=== PATIENT | male | born 1955 | race Caucasian/White ===

== ENCOUNTER 2018-12-26 20:56 | Inpatient (IN) | payer MEDICARE, SELFPAY ==
--- NOTE | 2018-12-26 21:04 | ED.GENADUL_ITS ---
Discharge Plan Disposition Patient Disposition: [facility] INPATIENT Condition: Poor Discharge Details Chief Complaint: Abd Prob Clinical Impression: Abdominal pain, Ventral hernia Primary Care Provider: Olegario Jay ED Provider: Enrico Mejia [place] Meds and New Rx's Prescriptions: No Action baclofen 20 MG tablet 20 mg PO Q8H PRNRF: 0 atorvastatin [Lipitor] 40 MG tablet 1 tab PO HS RF: 0 Medical Decision Making Patient with left lower quadrant pain and significant tenderness with guarding. Given his age, history and exam suspect diverticulitis. IV established. Fluids started. Morphine given for pain. Laboratory studies sent. CT scan of the abdomen pelvis with IV contrast ordered. 23:00 - Patient's labs are unremarkable. WBC is only slightly elevated. Lactic acid is less than 2. Other labs fine. CT scan shows a large ventral hernia with bowel loop with wall thickening. Radiology favors enteritis as opposed to strangulation. But, patient is exquisitely tender still despite morphine 8 mg. Consult placed with Dr. Hansen, who is coming in to see patient. 23:45 - Patient seen by Dr. Hansen. She will take patient to OR [facility]. Type and screen sent. Zosyn ordered. Medical Records Medical records reviewed: Yes I reviewed the patient's medical records. Lab Data Lab results reviewed: Yes I reviewed the patient's lab results. ECG Data Attestation: I personally reviewed and interpreted this ECG (s) as follows: Prior ECG tracings: not available for review Interpretation: Normal sinus rhythm at a rate of 64. Normal axis and intervals. Normal EKG. HPI General Mode of arrival: ambulatory . Date/Time Provider Initiated Documentation: 12/26/18 21:04 . Limitations to Documentation: no limitations . Information obtained by: patient, RN notes reviewed and old records reviewed . HPI Narrative: Patient presents to ED with complaint of left lower quadrant abdominal pain that has been getting worse over the last 2 days. He denies having fever, chills, nausea, vomiting, anorexia, diarrhea. He has no back pain or urinary symptoms. He has never had this previously. Pain is worse with lying flat or with movement. He feels better if he sitting up hunched over. Related Data Home Medications Medication Instructions Recorded Confirmed baclofen 20 mg PO Q8H PRN 06/26/15 12/26/18 atorvastatin [Lipitor] 1 tab PO HS 09/11/16 12/26/18 Allergies Allergy/AdvReac Type Severity Reaction Status Date / Time ibuprofen [From Motrin] AdvReac Intermediate face Verified 12/26/18 21:08 shrinks in lactose AdvReac Mild Diarrhea Verified 12/26/18 21:08 nicotine [From Nicoderm CQ] AdvReac Mild Topical Verified 12/26/18 21:08 Irritation varenicline tartrate AdvReac Mild feels Verified 12/26/18 21:08 [From Chantix] wierd Review of Systems Review of Systems 02/05 Review of Systems completed and is negative except as stated above in HPI (Systems reviewed: Const, Eyes, ENT, Resp, CV, GI, , MSK, Skin, Neuro) FOR[facility]LY [facility] Medical History CVA (cerebral vascular accident) (Chronic) Hypercholesterolemia (Acute) Renal insufficiency, mild (Chronic) Surgical History S/P appendectomy (Acute) S/P shoulder surgery (Acute) Social History (Updated 12/26/18 @ 23:48 by Brenda Hansen MD) Smoking/Tobacco Use Status: Current every day Alcohol Intake: current Drug use: Never Household members: spouse Do you feel safe in your relationship?: Yes Exam Narrative Exam Narrative: Vitals: Afebrile with normal vital signs. Const: WDWN male in NAD. HEENT: NC/AT. Normal facial exam. Eyes: Normal conjunctiva and sclera. Neck: Supple. Trachea midline. Lungs: Normal respiratory effort. Lungs with few rhonchi in bases. Cor: RRR without murmur/gallop. Good radial pulses. GI: Soft and non-distended. Tender in the LLQ with guarding. Back: No CVAT. Neuro: A+O x 3. CN grossly in tact. Good strength and no focal deficit. Ext: No C/C/E. Skin: Warm and dry without rash.
[2018-12-26 21:05] VITALS: BP 125/66; PULSE 90; RESP 18; TEMP 36.7; O2SAT 95
--- NOTE | 2018-12-26 21:22 | DI.CT_ITS ---
SYMPTOMS/DIAGNOSIS: LLQ PAIN CT OF THE ABDOMEN AND PELVIS: Comparison is made with [id number]. There is again noted to be dehiscence of the anterior abdominal wall. There are two areas of herniation containing small bowel which was seen on the previous exam and were nonobstructing on the previous study. There is now dilatation and marked wall thickening of loops of bowel in the same location at the area of the hernias. The findings could be secondary obstruction vs inflammatory or infectious causes. There is no evidence of free air, free fluid or abscess. There is diverticulosis but no evidence of diverticulitis. The patient appears to be status post appendectomy. The heart size is normal. The lung bases show dependent changes. The liver shows mild fatty infiltration which appears mildly improved when compared with the previous exam. The gallbladder, spleen, pancreas, adrenals and kidneys are unremarkable. The aorta shows mild calcification and mural thrombus but no evidence of aneurysm. IMPRESSION: Diastasis of the anterior abdominal wall. Two areas of herniation containing loops of small bowel. There is now wall thickening of the small bowel in this location which could be secondary obstruction vs inflammatory or infectious causes.
[2018-12-26] MEDS: Lactated Ringers 1,000 ML 1000 ML IV (21:30)
[2018-12-26] MEDS: Normal Saline Flush 10 ML SYR IVP (21:31)
[2018-12-26 21:41] LABS: Lactate 1.6 mmol/L (0.6-1.4)
[2018-12-26 21:45] LABS: Abs Immature Grans 0.03 k/cumm (0.0-0.09); Absolute Basophil Count 0.04 k/cumm (0.0-0.2); Absolute Eosinophil Count 0.45 k/cumm (0.0-0.7); Absolute Lymphocyte Count 2.79 k/cumm (1.2-3.4); Absolute Monocyte Count 0.43 k/cumm (0.11-0.7); Basophils % 0.3; Eosinophils % 3.7; HGB 14.8 g/dL (13.5-17.5); Immature Grans % 0.2; Lymphocytes % 23.2; Mean Corp. HGB Concentration 33.6 g/dL (32.0-36.0); Mean Corpuscular Hemoglobin 30.3 pg (27.0-33.0); Mean Platelet Volume 10.1 fL (8.0-11.0); Monocytes % 3.6; Platelet Count 272 x1000/uL (130-400); RBC 4.89 m/cumm (4.50-6.00); RBC Distribution Width 14.5 % (11.8-14.1); White Blood Cell Count 12.03 k/cumm (4.4-10.8)
[2018-12-26 21:58] LABS: ALT 32 U/L (16-63); AST 18 U/L (15-37); Albumin 3.5 g/dL (3.4-5.0); Alkaline Phosphatase 99 U/L (46-116); Anion Gap 8.4 mmol/L (3-11); BUN 17 mg/dL (7-18); Bilirubin, Total 0.4 mg/dL (0.2-1.0); CO2 25.6 mmol/L (21.0-32.0); CREATININE 1.11 mg/dL (0.70-1.30); Calcium 8.5 mg/dL (8.5-10.1); Chloride 104 mmol/L (98-107); Glucose 142 mg/dL (70-100); Magnesium 1.9 mg/dL (1.8-2.4); Potassium 3.4 mmol/L (3.5-5.1); Sodium 138 mmol/L (136-145); Total Protein 7.2 g/dL (6.4-8.2)
[2018-12-26 22:05] LABS: Lipase 162 U/L (73-393)
[2018-12-26 22:27] VITALS: BP 123/62; PULSE 72; RESP 16; O2SAT 95
[2018-12-26] MEDS: Omnipaque 350 MG/ML 100 ML BTL IJ (22:34)
--- NOTE | 2018-12-26 22:44 | DI.VRAD_ITS ---
EXAM: CT Abdomen and Pelvis With Contrast EXAM DATE/TIME: 12/26/2018 9:24 PM CLINICAL HISTORY: 63 years old, male; Abdominal pain; Localized; Left lower quadrant (llq); Prior surgery; Surgery date: 6+ months; Surgery type: Appendix removed after burst; Patient HX: Noticeable lump for about a month and increasing pain pain TECHNIQUE: Imaging protocol: Computed tomography of the abdomen and pelvis with intravenous contrast. Radiation optimization: All CT scans at this facility use at least one of these dose optimization techniques: automated exposure control; mA and/or kV adjustment per patient size (includes targeted exams where dose is matched to clinical indication); or iterative reconstruction. Contrast material: OMNIPAQUE 350; Contrast volume: 100 ml; Contrast route: IV; COMPARISON: CT CHEST ABD PELVIS WITH CONTRAST 05/18/2017 9:40 PM FINDINGS: Lungs: Small amount of basilar atelectasis. Liver: No suspicious lesions. Gallbladder and bile ducts: No acute or concerning findings. Pancreas: Unremarkable. No ductal dilation. Spleen: No suspicious lesions. Adrenals: No suspicious nodule. Kidneys and ureters: No hydro. No suspicious lesions. Stomach and bowel: Lower midline abdomen has a short segment of small bowel with wall thickening in this loop of bowel is involved in the ventral hernias. Appendix: Appendectomy. Intraperitoneal space: No free air. No significant fluid collection. Vasculature: Unremarkable. No acute findings Lymph nodes: Unremarkable. Bladder: Unremarkable as visualized. Reproductive: Unremarkable as visualized. Bones/joints: Unremarkable. No acute fracture. Soft tissues: Abdomen diastases. There are 2 periumbilical ventral hernias which contain short segments of small bowel. IMPRESSION: There is a segment of inflamed small bowel. Most likely this is enteritis from infection or inflammatory bowel disease. This loop of bowel is involved in the patient's ventral hernias however I think less likely that the wall thickening is associated with any strangulation.. Dictated and Authenticated by: Tim Ramos MD. Ordering:JEFFERY Weston MD
[2018-12-26 23:14] VITALS: BP 120/57; PULSE 64; RESP 16; TEMP 36.6; O2SAT 96
--- NOTE | 2018-12-26 23:43 | HPE_ITS ---
Date of service: 12/26/18 Time of Service: 23:43 Assessment and Plan (1) Incarcerated incisional hernia: Current visit: Yes Status: Acute A\\ Incarcerated incisional hernia with possible small bowel compromise P\\ Exploratory laparotomy with reduction of hernia, possible small bowel resection with anastamosis Risks, benefits and complications have been reviewed. Complications include but are not limited to bleeding, infection, [place] leak, bowel injury, hernia recurrence, wound dehisence, NH, stroke, . Questions were entertained and answered to his satisfaction and he wished to proceed. No guarantees were given or implied. History of Present Illness Chief Complaint: Abdominal pain Consults Consult date: 12/26/18 Requesting physician: Enrico Mejia Narrative: Patient presents to ED with complaint of left lower quadrant abdominal pain that has been getting worse over the last 2 days. He denies having fever, chills, nausea, vomiting, anorexia, diarrhea. He has no back pain or urinary symptoms. He has never had this previously. Pain is worse with lying flat or with movement. He feels better if he sitting up hunched over. He tells me that he has symptoms on and off for 1 to 2 months but over the last 3-4 days the pain has progressively gotten worse. He denies any trauma. He denies fevers or chills. He has a PMHx significant for ruptured appendicitis and had a midline incision. CT scan in the ER revealed an incisional hernia with small bowel within it. It looks like the bowel is tunneling under the skin. There are inflammatory changes around the bowel. WBC count is mildly elevated, lactate is normal. Review of Systems Constitutional Denies fever(s) and Denies weakness Eyes Denies change in vision Cardiovascular Denies chest pain, Denies chest pain at rest, Denies irregular heart rhythm, Denies claudication, Denies palpitations and Denies dyspnea Respiratory Denies cough and Denies dyspnea Gastrointestinal Reports as per HPI and Denies dyspepsia Genitourinary Denies hematuria and Denies dysuria Neurologic Denies weakness Endocrine Denies palpitations Hematologic/Lymphatic Denies easy bleeding, Denies easy bruising and Denies lymphadenopathy FORMERLY [facility] Medical History CVA (cerebral vascular accident) (Chronic) Hypercholesterolemia (Acute) Renal insufficiency, mild (Chronic) Surgical History S/P appendectomy (Acute) S/P shoulder surgery (Acute) Social History (Updated 12/26/18 @ 23:48 by Brenda Hansen MD) Smoking/Tobacco Use Status: Current every day Alcohol Intake: current Drug use: Never Household members: spouse Do you feel safe in your relationship?: Yes Meds Home Medications Medication Instructions Recorded Confirmed Type baclofen 20 mg PO Q8H PRN 06/26/15 12/26/18 History atorvastatin [Lipitor] 1 tab PO HS 09/11/16 12/26/18 History Allergies Allergy/AdvReac Type Severity Reaction Status Date / Time ibuprofen [From Motrin] AdvReac Intermediate face Verified 12/26/18 21:08 shrinks in lactose AdvReac Mild Diarrhea Verified 12/26/18 21:08 nicotine [From Nicoderm CQ] AdvReac Mild Topical Verified 12/26/18 21:08 Irritation varenicline tartrate AdvReac Mild feels Verified 12/26/18 21:08 [From Chantix] wierd Exam Const General: cooperative, comfortable and no acute distress Orientation: alert and oriented x3 HENMT Head: normocephalic and atraumatic Eyes Pupils: PERRL Resp Effort & Inspection: normal respiratory effort Auscultation: clear to auscultation bilaterally Cardio Rate: regular rate Rhythm: regular rhythm Heart Sounds: no gallops, no murmurs and no rubs GI Inspection: normal to inspection and incision (midline incision) Palpation: soft, no hepatosplenomegaly and tender in the LLQ (guarding) Auscultation: normal bowel sounds Results Labs : 12/26/18 21:15 12/26/18 21:15 Laboratory Results - last 24 hr 12/26/18 12/26/18 12/26/18 21:15 21:15 21:15 WBC 12.03 H RBC 4.89 Hgb 14.8 Hct 44.0 MCV 90.0 MCH 30.3 MCHC 33.6 RDW 14.5 H Plt Count 272 MPV 10.1 Immature Gran % 0.2 Neutrophils % 69.0 Lymphocytes % 23.2 Monocytes % 3.6 Eosinophils % 3.7 Basophils % 0.3 Absolute Neutrophils 8.30 H Absolute Lymphocytes 2.79 Absolute Monocytes 0.43 Absolute Eosinophils 0.45 Absolute Basophils 0.04 Sodium 138 Potassium 3.4 L Chloride 104 Carbon Dioxide 25.6 Anion Gap 8.4 BUN 17 Creatinine 1.11 Estimated GFR/1.73 m2 >= 60.00 Glucose 142 H Lactate 1.6 H Calcium 8.5 Magnesium 1.9 Total Bilirubin 0.4 AST 18 ALT 32 Alkaline Phosphatase 99 Total Protein 7.2 Albumin 3.5 Lipase 162 Last Vital Signs Temp 97.9 F 12/26/18 23:14 Pulse 64 12/26/18 23:14 Resp 16 12/26/18 23:14 BP 120/57 L 12/26/18 23:14 Pulse Ox 96 12/26/18 23:14
[2018-12-26] MEDS: PIPERACILLIN/TAZO 3.375 GM in Normal Saline 50 ML IVPB (23:58)
[2018-12-27] VITALS (14 sets, daily range): BP systolic 106–144; BP diastolic 63–84; PULSE 67–97; RESP 15–23; TEMP 36–37.5; O2SAT 92–99
[2018-12-27] MEDS: Lactated Ringers 1,000 ML 80 ML IV ×3 (00:27→17:00)
[2018-12-27] MEDS: fentaNYL 100 MCG/2 ML VIAL IVP ×2 (02:31→02:39)
--- NOTE | 2018-12-27 02:32 | ROE_ITS ---
Date of service: 12/27/18 Time of Service: 02:33 Operative Note DATE OF PROCEDURE: 12/27/18 PRE-OP DIAGNOSIS: Incarcerated hernia POST-OP DIAGNOSIS: same PROCEDURE: Exploratory laparotomy, lyses of adhesions, removal of hernia sac and hernia repair with ventralex mesh SURGEON: Brenda Hansen CONTROLS DESIGN ENGINEER: Audrey Sanchez ANESTHESIA: GETA (ASA 2E/ Nacho Espinoza, MANUEL) ESTIMATED BLOOD LOSS: 75 PATHOLOGY: none sent COMPLICATIONS: None Patient was transported to: PACU Patient's condition: stable Implants: Ventralight ST 8 x 10 inch [id number] Indications: Mr. Negrete is a 63 year old male seen in the ED with 3-4 days of abdominal pain located in the LLQ. He was guarding on exam. CT scan revealed incisional hernia with fat stranding and bowel thickening. Due to his pain and CT findings surgery for exploration and repair of hernia and possible small bowel resection was recommended. Risks, benefits and complications were revi ewed. Questions were entertained and answered to his satisfaction and he wished to proceed. NO guarantees were given or implied. Findings: multiple small hernias. Loop of small bowel that was edematous but viable. Retracted fascia. Procedure Description: After informed consent was obtained the patient was taken to the Operating room and placed in a supine position of the operating room table. Monitors were applied and a time out was done. The patients name, , allergies, antibiotic given, DVT prophilaxis, surgery planned, type and screen status were all reviewed. Fire risk was assessed. Next the patient was placed under general anesthesia and intubated. 3.375 Gm of Zosyn were given prior to arriving in surgery in the ER. Once a sleep and with the airway secured a redmond catheter was placed in a standard, sterile surgical fashion. At this point the patient hair was clipped and his abdomen was prepped and draped in a standard fashion. His midline incision was opened with a 10 blade. Cautery was carefully used to dissect down through the subcutaneous tissue. In the most superior portion of the incision the fascia was opened and I was able to place my finger and sweep for bowel. The fascia was slowly opened and 4 small hernia defects were identified on the left and right off midline. There was no bowel incarcerated but there was one loop of bowel that was edematous. Once the fascia was opened the entire length adhesions were noted of bowel to peritoneum. The adhesions were cut using both cautery and scissors. 30 minutes were spend lysing adhesions. Once the bowel was dissected away from the peritoneum, the peritoneum was inspected again. All defects in the fascia were noted. There were 4 hernias. The hernia sacs were dissected away from the fascia. The rectus muscle was palpated and was noted to be retracted about 2 inches away from the midline. The fascia/peritoneum/ muscle was dissected away from the subcutaneous tissue almost to the anterior superior iliac spine. At this point the fascia was inspected and noted to be very thin. The small bowel was inspected and run and no enterotomies or serosal tears were noted. At this point the abdomen was irrigated with 1 L of warm Normal Saline. A Ventralight mesh 8 x 10 was placed into the abdomen and attached first in 4 quadrants with 2-0 proline. 4 more sutures were then placed in the mesh attaching it to the fascia. The mesh was inspected and was laying pretty flat at that point. The peritoneum and fascia was closed with #1 Vicryl running suture over the mesh. The subcutaneous tissue was the irrigated again. because of the amount of dissection 2 10 Fr drains were placed on either side of mi dline. The fascia was closed with wendi. The drains were attached to the Bulbs and there was serosanguinous fluid. The skin was cleaned and dried. 4 x 4 were applied to the dressing and tapped in place. The redmond was removed. The patient was woken up, extubated and taken to PACU in stable to condition. There were no immediate complications. Sponge, instrument and needle counts were correct x 2 at the end of the case.
[2018-12-27] MEDS: Normal Saline Flush 10 ML SYR IVP ×6 (03:07→22:15)
[2018-12-27] MEDS: Ketorolac 15 MG/ML VIAL IVP ×2 (04:12→22:15)
[2018-12-27] MEDS: Enoxaparin 40 MG/0.4 ML SYR SC (06:32)
[2018-12-27] MEDS: PIPERACILLIN/TAZO 3.375 GM in Normal Saline 50 ML IVPB ×2 (06:32→12:03)
--- NOTE | 2018-12-27 07:02 | W.PM.PROGNOT ---
Date of Service Date of service: 12/27/18 Time of Service: 07:02 Assessment and Plan (1) Incarcerated incisional hernia: Current visit: Yes Status: Acute POD #1 s/p exploratory lapartomy for incarcerated incisional hernia Pain- Severe at times. Morphine is ordered. Diet- Will trial post op diet this morning. Activity- Encouraged activity out of bed. Nsg staff were getting him up. GLEN drains- Bloody, serous fluid in both. Subjective Interval history since last seen: The nurse just gave me something for pain. He reports discomfort over his incision site. Exam Const General: cooperative, comfortable and acute distress mild Orientation: alert and oriented x3 Resp Effort & Inspection: normal respiratory effort, no audible wheezes and no cough GI Inspection: normal to inspection and incision (Dressing in place. Mild bleeding noted at the base of the dressing/incision) Palpation: soft, guarding and tender Objective Objective Clinical Data: Abnormal lab results 12/26/18 12/26/18 12/26/18 Range/Units 21:15 21:15 21:15 WBC 12.03 H (4.4-10.8) k/cumm RDW 14.5 H (11.8-14.1) % Absolute Neutrophils 8.30 H (1.2-6.7) k/cumm Potassium 3.4 L (3.5-5.1) mmol/L Glucose 142 H (70-100) mg/dL Lactate 1.6 H (0.6-1.4) mmol/L Vital Signs Temperature 36.8 C 12/27/18 05:40 Temperature Source Tympanic 12/27/18 05:40 Pulse 70 12/27/18 05:40 Pulse Rhythm Regular 12/27/18 03:10 Respiratory Rate 18 12/27/18 05:40 Respiratory Effort Non-Labored 12/27/18 03:10 Respiratory Depth Normal 12/27/18 03:10 Respiratory Pattern Normal 12/27/18 03:10 Blood Pressure 132/75 12/27/18 05:40 Blood Pressure Position Sitting 12/26/18 21:05 Pulse Oximetry 97 12/27/18 05:40 Respiratory End-tidal CO2 38 12/27/18 02:48 Oxygen Delivery Method Nasal Cannula 12/27/18 05:40 Oxygen Flow Rate 2 12/27/18 05:40 Pain Level 6 12/27/18 06:32 Comment 12/27/18 05:40 Intake & Output 12/26/18 12/27/18 12/27/18 18:59 06:59 18:59 Intake Total 1974.333 / 1974. Output Total 450 / 450 Balance 1525.333 / 1525.333 Weight 109.2 kg Intake: IV 1914. / Oral 60 / 60 Output: Drainage 150 / 150 Lower Abdomen 150 / 150 Urine 300 / 300 Other: Urine Color Yellow Urine Appearance Clear Emesis Description None Laboratory Results WBC 12.03 k/cumm (4.4-10.8) H 12/26/18 21:15 RBC 4.89 m/cumm (4.50-6.00) 12/26/18 21:15 Hgb 14.8 g/dL (13.5-17.5) 12/26/18 21:15 Hct 44.0 % (40.0-50.0) 12/26/18 21:15 MCV 90.0 fL (80-95) 12/26/18 21:15 MCH 30.3 pg (27.0-33.0) 12/26/18 21:15 MCHC 33.6 g/dL (32.0-36.0) 12/26/18 21:15 RDW 14.5 % (11.8-14.1) H 12/26/18 21:15 Plt Count 272 x1000/uL (130-400) 12/26/18 21:15 MPV 10.1 fL (8.0-11.0) 12/26/18 21:15 Immature Gran % 0.2 12/26/18 21:15 69.0 12/26/18 21:15 23.2 12/26/18 21:15 3.6 12/26/18 21:15 3.7 12/26/18 21:15 0.3 12/26/18 21:15 Absolute Neutrophils 8.30 k/cumm (1.2-6.7) H 12/26/18 21:15 Absolute Lymphocytes 2.79 k/cumm (1.2-3.4) 12/26/18 21:15 Absolute Monocytes 0.43 k/cumm (0.11-0.7) 12/26/18 21:15 Absolute Eosinophils 0.45 k/cumm (0.0-0.7) 12/26/18 21:15 Absolute Basophils 0.04 k/cumm (0.0-0.2) 12/26/18 21:15 Sodium 138 mmol/L (136-145) 12/26/18 21:15 Potassium 3.4 mmol/L (3.5-5.1) L 12/26/18 21:15 Chloride 104 mmol/L (98-107) 12/26/18 21:15 Carbon Dioxide 25.6 mmol/L (21.0-32.0) 12/26/18 21:15 8.4 mmol/L (3-11) 12/26/18 21:15 BUN 17 mg/dL (7-18) 12/26/18 21:15 1.11 mg/dL (0.70-1.30) 12/26/18 21:15 >= 60.00 (mL/min/1.73m2) 12/26/18 21:15 Glucose 142 mg/dL (70-100) H 12/26/18 21:15 1.6 mmol/L (0.6-1.4) H 12/26/18 21:15 Calcium 8.5 mg/dL (8.5-10.1) 12/26/18 21:15 Magnesium 1.9 mg/dL (1.8-2.4) 12/26/18 21:15 0.4 mg/dL (0.2-1.0) 12/26/18 21:15 AST 18 U/L (15-37) 12/26/18 21:15 ALT 32 U/L (16-63) 12/26/18 21:15 99 U/L (46-116) 12/26/18 21:15 7.2 g/dL (6.4-8.2) 12/26/18 21:15 3.5 g/dL (3.4-5.0) 12/26/18 21:15 162 U/L (73-393) 12/26/18 21:15 Patient ABO/Rh A Positive 12/26/18 23:55 Antibody Screen Negative 12/26/18 23:55
[2018-12-27 07:18] LABS: Abs Immature Grans 0.02 k/cumm (0.0-0.09); Absolute Basophil Count 0.02 k/cumm (0.0-0.2); Absolute Eosinophil Count 0.02 k/cumm (0.0-0.7); Absolute Lymphocyte Count 0.64 k/cumm (1.2-3.4); Basophils % 0.1; Eosinophils % 0.1; HCT 43.1 % (40.0-50.0); Immature Grans % 0.1; Lymphocytes % 3.9; Mean Corp. HGB Concentration 32.5 g/dL (32.0-36.0); Mean Corpuscular Hemoglobin 29.8 pg (27.0-33.0); Mean Corpuscular Volume 91.7 fL (80-95); Mean Platelet Volume 10.5 fL (8.0-11.0); Monocytes % 1.2; Neutrophils % 94.6; Platelet Count 274 x1000/uL (130-400); RBC Distribution Width 14.7 % (11.8-14.1); White Blood Cell Count 16.33 k/cumm (4.4-10.8)
[2018-12-27 07:19] LABS: Absolute Neutrophil Count 15.45 k/cumm (1.2-6.7)
[2018-12-27 07:31] LABS: Anion Gap 9.7 mmol/L (3-11); BUN 15 mg/dL (7-18); CO2 24.3 mmol/L (21.0-32.0); CREATININE 1.07 mg/dL (0.70-1.30); Calcium 8.3 mg/dL (8.5-10.1); Chloride 105 mmol/L (98-107); Glucose 152 mg/dL (70-100); Potassium 4.4 mmol/L (3.5-5.1); Sodium 139 mmol/L (136-145)
[2018-12-27] MEDS: oxyCODONE 5 MG TAB PO ×3 (08:13→19:45)
[2018-12-27] MEDS: Docusate Sodium 100 MG CAP PO (08:13)
[2018-12-27] MEDS: Acetaminophen 325 MG TAB 650 MG PO (08:19)
--- NOTE | 2018-12-27 09:31 | PHARADMIT ---
Addendum entered by Daniel Bryan III 12/28/18 12:14: Pharmacy Note Subjective Post-op day#1 Incisional hernia repair w/mesh. Provider reports patient up & doing well. Objective VS-OK pain:02/01 Labs-stable unchanged, No BM yet Assessment Tolerating Toradol despite Ibuprofen allergy, Oxycodone for pain with IV narcs for BT. Plan Plan for discharge once pain controlled and stable. Original Note: Admission Pharmacy Clinical Review Post-op incarcerated hernia repair Code Status Full Code Current Weight Wgt-109.2 kg Renally Cleared and Narrow Therapeutic Index Meds CrCl~81 mL/min Meds-OK QTc Value / Action Taken qtC-413 na BP Control, Fever BP-110/71 Tmax-36.6C Electrolytes reviewed Na- 139 K+4.4 Mag-1.9 DVT Prophylaxis Lovenox Opiate Usage / Scheduled Bowel Regimen Ordered Yes/ Yes Plt/SCr for Heparin / Enoxaparin Plts-274 SCr-1.07 INR for Warfarin na H/H stable, WBC/Bands H&H-14.0/43.1 WBC- 16.33 Antibiotic appropriateness Zosyn Cultures and Sensitivities none Surgical ABX d/c within 24 hr na DM control / Insulin Dosing BG-152 Heart Failure (Check EF%) (CHRISTOPHER's, B-Block, Diuretics) none IV to PO Switch No Home Meds Reviewed Yes Home Meds Not Ordered Baclofen, Lipitor Comments
--- NOTE | 2018-12-27 15:16 | INITIAL_ITS ---
- If Service Date Differs Date of service: 12/27/18 Time of Service: 15:16 Care Management Initial Assess REASON FOR HOSPITALIZATION:: Abdominal Pain, ventral hernia PAST MEDICAL HISTORY/PAST SURGICAL HISTORY:: Medical History. CVA (cerebral vascular accident) (Chronic). Hypercholesterolemia (Acute). Renal insufficiency, mild (Chronic). Surgical History. S/P appendectomy (Acute). S/P shoulder surgery (Acute) PREVIOUS FUNCTIONAL STATUS/SOCIAL/FAMILY SUPPORTS:: Gerardo lives in [facility] with his , Ruthy, who he calls 'the boss'. He states that he is disabled, and that his is his software test engineer. He also explains that his house is one level, and his bathroom is handicap accessible. Between him and his , they have 12 children and 20 grandchildren. CURRENT FUNCTIONAL STATUS:: Gerardo was lying in his bed when CM entered the room. He had his hand over his abdomin, and his eyes were closed. He opened his eyes to talk to CM about his care plan. When asked, he stated that he was in p ain, but that the nurse had just given him something for his pain, and that it had been kept under control while here. He stated that he was splitting wood all day yesterday and he was in a lot of pain, so he came to the ED. He said that he waited until the pain was unbearable to have it looked at. He is aware that he had surgery to repair the hernia, but he does not know when he will be going sha[facility] e. When CM asked if he needed anything he stated take my pain away, but he said the pain was only when he tried to move around. He also stated that he was tired. ADVANCE DIRECTIVES:: Greg reported that his staff attorney has a living will on file. We do not have an AD on file. Has patient been provided with information about the portal?: Yes Did the patient sign up for the portal?: No (Pt to discuss w/) CODE STATUS:: Full Code INSURANCE COVERAGE / FINANCIAL ISSUES:: MCR CURRENT HOME/COMMUNITY SERVICES/EQUIPMENT:: Greg currently has a FWW, cane and crutches at home. Greg requested new HH services and MOW, which CM will coordinate and communicate with the provider for medical necessity. PRIMARY CARE PHYSICIAN:: Olegario Jay POTENTIAL DISCHARGE NEEDS:: Anticipate new HH services, which CM will coordinate. CM sent referral to [facility] for options counceling and MOW. Follow up appointment with PCP. PATIENT/FAMILY EDUCATION NEEDS:: Review discharge instructions, discuss self care needs including Ask Me Three. ANTICIPATED BARRIERS TO DISCHARGE:: None identified at this time. CM will follow. TRANSPORTATION:: Home via private vehicle with his , Ruthy. PLAN:: Greg will return home when medically cleared. He will follow up with his PCP, as instructed. Anticipate new HH services, coordinated by CM. CM also sent referral to [facility] for options counceling and MOW. Greg will be driven home by his when ready to discharge.
--- NOTE | 2018-12-27 17:42 | W.PM.PROGNOT ---
Date of Service Date of service: 12/27/18 Time of Service: 17:42 Assessment and Plan (1) S/P herniorrhaphy: Current visit: Yes Status: Acute A\\ POD#0 s/p incisional hernia repair with mesh P\\ Doing well. Discussed pain control and reasonable expectations regarding pain control. Needs to be controlled on po pain meds to be able to get discharged. Pain meds: will change oxycodon to q4 hours use IV narcotis only for breakthrough Activity: up and walking respiratory: continue with deep breathing and ISP Drains: will remove once draining serous fluid Labs: recheck in am Has listed allergy to ibuprofen but is doing well on toradol. Disposition: Home once medically stable and pain controlled on po meds Note for work written and in chart Subjective Interval history since last seen: Doing Ok. Has been up and walking. He is still needing IV pain medication to help. Tolerating a regular soft post op diet. Exam Const General: cooperative, comfortable and no acute distress Orientation: alert and oriented x3 Resp Effort & Inspection: normal respiratory effort Auscultation: clear to auscultation bilaterally Cardio Rate: regular rate Rhythm: regular rhythm Heart Sounds: no gallops, no murmurs and no rubs GI Inspection: incision (c/d/i) Palpation: soft and tender (appropriatley along the incison) Auscultation: normal bowel sounds Objective Objective Clinical Data: Abnormal lab results 12/26/18 12/26/18 12/26/18 Range/Units 21:15 21:15 21:15 WBC 12.03 H (4.4-10.8) k/cumm RDW 14.5 H (11.8-14.1) % Absolute Neutrophils 8.30 H (1.2-6.7) k/cumm Absolute Lymphocytes (1.2-3.4) k/cumm Potassium 3.4 L (3.5-5.1) mmol/L Glucose 142 H (70-100) mg/dL Lactate 1.6 H (0.6-1.4) mmol/L Calcium (8.5-10.1) mg/dL 12/27/18 12/27/18 Range/Units 06:15 06:15 WBC 16.33 H D (4.4-10.8) k/cumm RDW 14.7 H (11.8-14.1) % Absolute Neutrophils 15.45 H (1.2-6.7) k/cumm Absolute Lymphocytes 0.64 L (1.2-3.4) k/cumm Potassium (3.5-5.1) mmol/L Glucose 152 H (70-100) mg/dL Lactate (0.6-1.4) mmol/L Calcium 8.3 L (8.5-10.1) mg/dL Vital Signs Temperature 98.2 F 12/27/18 15:26 Temperature Source Tympanic 12/27/18 15:26 Pulse 74 12/27/18 15:26 Pulse Rhythm Regular 12/27/18 15:26 Respiratory Rate 18 12/27/18 15:26 Respiratory Effort Non-Labored 12/27/18 15:26 Respiratory Depth Normal 12/27/18 15:26 Respiratory Pattern Normal 12/27/18 15:26 Blood Pressure 135/74 12/27/18 15:26 Blood Pressure Position Sitting 12/26/18 21:05 Pulse Oximetry 92 L 12/27/18 15:26 Respiratory End-tidal CO2 38 12/27/18 02:48 Oxygen Delivery Method Room Air 12/27/18 15:26 Oxygen Flow Rate 0 12/27/18 15:26 Pain Level 5 12/27/18 17:08 Comment 12/27/18 05:40 Intake & Output 12/26/18 12/27/18 12/27/18 23:59 11:59 23:59 Intake Total 1000 / 1000 1910.333 / 3291.000 1380.667 / 3291.000 Output Total 1190 / 2680 1490 / 2680 Balance 1000 / 1000 720.333 / 611.000 -109.333 / 611.000 Weight 240 lb 11.916 oz 240 lb 11.916 oz Intake: IV 1000 / 1000 965.333 / 1746.000 780.667 / 1746.000 Oral 870 / 1470 600 / 1470 Injectate 75 / 75 Left Abdomen 30 / 30 Right Abdomen 45 / 45 Output: Drainage 240 / 280 40 / 280 Left Abdomen 10 / 10 Lower Abdomen 240 / 240 Right Abdomen 30 / 30 Urine 950 / 2400 1450 / 2400 Other: Urine Color Yellow Yellow Urine Appearance Sediment Clear Sediment Urine Odor Normal Emesis Description None Voiding Methods Toilet Toilet Laboratory Results WBC 16.33 k/cumm (4.4-10.8) H D 12/27/18 06:15 RBC 4.70 m/cumm (4.50-6.00) 12/27/18 06:15 Hgb 14.0 g/dL (13.5-17.5) 12/27/18 06:15 Hct 43.1 % (40.0-50.0) 12/27/18 06:15 MCV 91.7 fL (80-95) 12/27/18 06:15 MCH 29.8 pg (27.0-33.0) 12/27/18 06:15 MCHC 32.5 g/dL (32.0-36.0) 12/27/18 06:15 RDW 14.7 % (11.8-14.1) H 12/27/18 06:15 Plt Count 274 x1000/uL (130-400) 12/27/18 06:15 MPV 10.5 fL (8.0-11.0) 12/27/18 06:15 Immature Gran % 0.1 12/27/18 06:15 94.6 12/27/18 06:15 3.9 12/27/18 06:15 1.2 12/27/18 06:15 0.1 12/27/18 06:15 0.1 12/27/18 06:15 Absolute Neutrophils 15.45 k/cumm (1.2-6.7) H 12/27/18 06:15 Absolute Lymphocytes 0.64 k/cumm (1.2-3.4) L 12/27/18 06:15 Absolute Monocytes 0.20 k/cumm (0.11-0.7) 12/27/18 06:15 Absolute Eosinophils 0.02 k/cumm (0.0-0.7) 12/27/18 06:15 Absolute Basophils 0.02 k/cumm (0.0-0.2) 12/27/18 06:15 Sodium 139 mmol/L (136-145) 12/27/18 06:15 Potassium 4.4 mmol/L (3.5-5.1) D 12/27/18 06:15 Chloride 105 mmol/L (98-107) 12/27/18 06:15 Carbon Dioxide 24.3 mmol/L (21.0-32.0) 12/27/18 06:15 9.7 mmol/L (3-11) 12/27/18 06:15 BUN 15 mg/dL (7-18) 12/27/18 06:15 1.07 mg/dL (0.70-1.30) 12/27/18 06:15 >= 60.00 (mL/min/1.73m2) 12/27/18 06:15 Glucose 152 mg/dL (70-100) H 12/27/18 06:15 1.6 mmol/L (0.6-1.4) H 12/26/18 21:15 Calcium 8.3 mg/dL (8.5-10.1) L 12/27/18 06:15 Magnesium 1.9 mg/dL (1.8-2.4) 12/26/18 21:15 0.4 mg/dL (0.2-1.0) 12/26/18 21:15 AST 18 U/L (15-37) 12/26/18 21:15 ALT 32 U/L (16-63) 12/26/18 21:15 99 U/L (46-116) 12/26/18 21:15 7.2 g/dL (6.4-8.2) 12/26/18 21:15 3.5 g/dL (3.4-5.0) 12/26/18 21:15 162 U/L (73-393) 12/26/18 21:15 Cancelled 12/26/18 21:56 Cancelled 12/26/18 21:56 Cancelled 12/26/18 21:56 Ur Specific [place] Cancelled 12/26/18 21:56 Cancelled 12/26/18 21:56 Cancelled 12/26/18 21:56 Cancelled 12/26/18 21:56 Cancelled 12/26/18 21:56 Cancelled 12/26/18 21:56 Cancelled 12/26/18 21:56 Ur Leukocyte Esterase Cancelled 12/26/18 21:56 Cancelled 12/26/18 21:56 Patient ABO/Rh A Positive 12/26/18 23:55 Antibody Screen Negative 12/26/18 23:55
[2018-12-27] MEDS: Ondansetron 4 MG/2 ML VIAL IVP (18:18)
[2018-12-27] MEDS: Atorvastatin 40 MG TAB PO (21:18)
[2018-12-28] MEDS: oxyCODONE 5 MG TAB PO ×5 (01:50→19:33)
[2018-12-28 03:30] VITALS: BP 119/74; PULSE 94; RESP 18; TEMP 37.1; O2SAT 91
[2018-12-28] MEDS: Ketorolac 15 MG/ML VIAL IVP ×4 (04:09→22:16)
[2018-12-28] MEDS: Normal Saline Flush 10 ML SYR IVP ×5 (04:10→22:17)
[2018-12-28] MEDS: Enoxaparin 40 MG/0.4 ML SYR SC (06:34)
[2018-12-28 07:29] LABS: Abs Immature Grans 0.03 k/cumm (0.0-0.09); Absolute Basophil Count 0.02 k/cumm (0.0-0.2); Absolute Lymphocyte Count 1.98 k/cumm (1.2-3.4); Absolute Monocyte Count 1.01 k/cumm (0.11-0.7); Basophils % 0.1; Eosinophils % 0.4; HCT 41.3 % (40.0-50.0); HGB 13.5 g/dL (13.5-17.5); Immature Grans % 0.2; Lymphocytes % 12.4; Mean Corp. HGB Concentration 32.7 g/dL (32.0-36.0); Mean Corpuscular Hemoglobin 29.9 pg (27.0-33.0); Mean Corpuscular Volume 91.6 fL (80-95); Mean Platelet Volume 10.5 fL (8.0-11.0); Monocytes % 6.3; Neutrophils % 80.6; Platelet Count 291 x1000/uL (130-400); RBC 4.51 m/cumm (4.50-6.00); RBC Distribution Width 14.9 % (11.8-14.1)
[2018-12-28 07:35] VITALS: BP 146/79; PULSE 82; RESP 18; TEMP 36.7; O2SAT 92
[2018-12-28 07:35] LABS: Absolute Eosinophil Count 0.06 k/cumm (0.0-0.7)
[2018-12-28 07:38] LABS: Anion Gap 9.8 mmol/L (3-11); BUN 12 mg/dL (7-18); CO2 28.2 mmol/L (21.0-32.0); CREATININE 1.13 mg/dL (0.70-1.30); Calcium 8.8 mg/dL (8.5-10.1); Chloride 102 mmol/L (98-107); Glucose 113 mg/dL (70-100); Potassium 3.9 mmol/L (3.5-5.1); Sodium 140 mmol/L (136-145)
[2018-12-28] MEDS: Nicotine 21 MG/24 HR PATCH TD (08:13)
[2018-12-28] MEDS: Baclofen 10 MG TAB 20 MG PO (08:14)
[2018-12-28] MEDS: Acetaminophen 325 MG TAB 650 MG PO ×2 (08:14→14:40)
[2018-12-28] MEDS: Docusate Sodium 100 MG CAP PO ×3 (08:14→19:33)
--- NOTE | 2018-12-28 08:43 | W.PM.PROGNOT ---
Documented by User: AYLIN Balbuena 12/28/18 08:47 Date of Service Date of service: 12/28/18 Time of Service: 08:43 Assessment and Plan (1) S/P herniorrhaphy: Current visit: Yes Status: Acute A\\ POD#1 s/p incisional hernia repair with mesh P\\ Doing very well. Up in the chair first thing this morning. Pain meds: will change oxycodon to q4 hours use IV narcotis only for breakthrough Activity: up and walking respiratory: continue with deep breathing and ISP Drains: will remove once draining serous fluid Labs: White count elevated Nicotine replacement ordered Has listed allergy to ibuprofen but is doing well on toradol. Disposition: Home once medically stable and pain controlled on po meds Note for work written and in chart Subjective Interval history since last seen: My stomach is really sore, but I have been moving around. He reports he is tolerating the post op diet. Exam Const General: cooperative, healthy appearing and comfortable Orientation: alert and oriented x3 Resp Effort & Inspection: normal respiratory effort, no audible wheezes and no cough GI Inspection: normal to inspection, non-distended and incision (dressing in place) Palpation: soft, guarding and tender Auscultation: normal bowel sounds Objective Objective Clinical Data: Abnormal lab results 12/28/18 12/28/18 Range/Units 06:25 06:25 WBC 16.00 H (4.4-10.8) k/cumm RDW 14.9 H (11.8-14.1) % Absolute Neutrophils 12.90 H (1.2-6.7) k/cumm Absolute Monocytes 1.01 H (0.11-0.7) k/cumm Glucose 113 H (70-100) mg/dL Vital Signs Temperature 36.7 C 12/28/18 07:35 Temperature Source Tympanic 12/28/18 07:35 Pulse 82 12/28/18 07:35 Pulse Rhythm Regular 12/27/18 19:51 Respiratory Rate 18 12/28/18 07:35 Respiratory Effort Non-Labored 12/27/18 19:51 Respiratory Depth Normal 12/27/18 19:51 Respiratory Pattern Normal 12/27/18 19:51 Blood Pressure 146/79 H 12/28/18 07:35 Blood Pressure Position Sitting 12/26/18 21:05 Pulse Oximetry 92 L 12/28/18 07:35 Respiratory End-tidal CO2 38 12/27/18 02:48 Oxygen Delivery Method Room Air 12/28/18 07:35 Oxygen Flow Rate 0 12/28/18 07:35 Pain Level 6 12/28/18 08:14 Comment 12/27/18 05:40 Intake & Output 12/27/18 12/28/18 12/28/18 18:59 06:59 18:59 Intake Total 2383.667 / 2448.667 65 / 2448.667 Output Total 2730 / 3745 1015 / 3745 100 / 100 Balance -346.333 / -1296.333 -950 / -1296.333 -100 / -100 Intake: IV 898.667 / 918.667 20 / 918.667 Oral 1410 / 1410 Injectate 75 / 120 45 / 120 Left Abdomen 30 / 40 10 / 40 Right Abdomen 45 / 80 35 / 80 Output: Drainage 130 / 145 15 / 145 Left Abdomen 10 / 15 5 / 15 Lower Abdomen 90 / 90 Right Abdomen 30 / 40 10 / 40 Urine 2600 / 3600 1000 / 3600 100 / 100 Other: Urine Color Yellow Straw Yellow Straw Urine Appearance Clear Clear Clear Urine Odor Normal None Normal Voiding Methods Toilet Toilet Toilet Laboratory Results WBC 16.00 k/cumm (4.4-10.8) H 12/28/18 06:25 RBC 4.51 m/cumm (4.50-6.00) 12/28/18 06:25 Hgb 13.5 g/dL (13.5-17.5) 12/28/18 06:25 Hct 41.3 % (40.0-50.0) 12/28/18 06:25 MCV 91.6 fL (80-95) 12/28/18 06:25 MCH 29.9 pg (27.0-33.0) 12/28/18 06:25 MCHC 32.7 g/dL (32.0-36.0) 12/28/18 06:25 RDW 14.9 % (11.8-14.1) H 12/28/18 06:25 Plt Count 291 x1000/uL (130-400) 12/28/18 06:25 MPV 10.5 fL (8.0-11.0) 12/28/18 06:25 Immature Gran % 0.2 12/28/18 06:25 80.6 12/28/18 06:25 12.4 12/28/18 06:25 6.3 12/28/18 06:25 0.4 12/28/18 06:25 0.1 12/28/18 06:25 Absolute Neutrophils 12.90 k/cumm (1.2-6.7) H 12/28/18 06:25 Absolute Lymphocytes 1.98 k/cumm (1.2-3.4) 12/28/18 06:25 Absolute Monocytes 1.01 k/cumm (0.11-0.7) H 12/28/18 06:25 Absolute Eosinophils 0.06 k/cumm (0.0-0.7) 12/28/18 06:25 Absolute Basophils 0.02 k/cumm (0.0-0.2) 12/28/18 06:25 Sodium 140 mmol/L (136-145) 12/28/18 06:25 Potassium 3.9 mmol/L (3.5-5.1) 12/28/18 06:25 Chloride 102 mmol/L (98-107) 12/28/18 06:25 Carbon Dioxide 28.2 mmol/L (21.0-32.0) 12/28/18 06:25 9.8 mmol/L (3-11) 12/28/18 06:25 BUN 12 mg/dL (7-18) 12/28/18 06:25 1.13 mg/dL (0.70-1.30) 12/28/18 06:25 >= 60.00 (mL/min/1.73m2) 12/28/18 06:25 Glucose 113 mg/dL (70-100) H 12/28/18 06:25 1.6 mmol/L (0.6-1.4) H 12/26/18 21:15 Calcium 8.8 mg/dL (8.5-10.1) 12/28/18 06:25 Magnesium 1.9 mg/dL (1.8-2.4) 12/26/18 21:15 0.4 mg/dL (0.2-1.0) 12/26/18 21:15 AST 18 U/L (15-37) 12/26/18 21:15 ALT 32 U/L (16-63) 12/26/18 21:15 99 U/L (46-116) 12/26/18 21:15 7.2 g/dL (6.4-8.2) 12/26/18 21:15 3.5 g/dL (3.4-5.0) 12/26/18 21:15 162 U/L (73-393) 12/26/18 21:15 Cancelled 12/26/18 21:56 Cancelled 12/26/18 21:56 Cancelled 12/26/18 21:56 Ur Specific [place] Cancelled 12/26/18 21:56 Cancelled 12/26/18 21:56 Cancelled 12/26/18 21:56 Cancelled 12/26/18 21:56 Cancelled 12/26/18 21:56 Cancelled 12/26/18 21:56 Cancelled 12/26/18 21:56 Ur Leukocyte Esterase Cancelled 12/26/18 21:56 Cancelled 12/26/18 21:56 Patient ABO/Rh A Positive 12/26/18 23:55 Antibody Screen Negative 12/26/18 23:55 Documented by User: Sandra Beltran DO 12/28/18 18:55 Assessment and Plan (1) Incarcerated incisional hernia: Current visit: Yes Status: Acute pt seen and examined. agree w/ above needs to have BM to home GLEN teaching ok to shower up walking better tonight this earlier today tolerating regular diet. + H/I- revleived w/ mylanta
[2018-12-28 11:05] VITALS: BP 132/75; PULSE 85; RESP 18; TEMP 36.8; O2SAT 91
--- NOTE | 2018-12-28 11:37 | PDOC.CMPRO ---
- If Service Date Differs Date of service: 12/28/18 Time of Service: 11:37 Care Management Progress Note S/O: Gerardo was lying in his bed when CM entered the room. He reports that he feels like crap, and that he is still in a lot of pain today. He said that the nurses are trying to get his pain under control, and he won't be discharged until that happens. He also said that he has not had a BM, which is something the nurses are waiting on. Greg told CM that his , Ruthy, wants to talk to CM about the discharge plan. CM instructed Greg to tell the nurses to page me when she arrives in order to coordinate the meeting. Greg is pleasant to talk to, even when showing signs of discomfort. CM will continue to follow. A: Greg is a 63 year old male admitted with abdominal pain on 12/26/2018. Greg had exploratory laparotomy, lyses of adhesions, removal of hernia sac and hernia repair with ventralex mesh in OR on 12/27/2018. P: BETTYE anticipates Greg will return home when medically cleared with new services, coordinated by CM. CM also faxed referral to [facility] for options counseling and MOW. Greg's , Ruthy will transport home via private vehicle when ready.
[2018-12-28 11:55] VITALS: BP 130/73; PULSE 77; RESP 20; TEMP 37.4; O2SAT 93
[2018-12-28 15:56] VITALS: BP 134/75; PULSE 92; RESP 16; TEMP 37; O2SAT 92
[2018-12-28] MEDS: Mylanta Suspension 30 ML CUP PO (16:07)
[2018-12-28] MEDS: Milk of Magnesia 30 ML CUP PO (18:21)
[2018-12-28 19:30] VITALS: BP 155/71; PULSE 81; RESP 18; TEMP 37.7; O2SAT 91
[2018-12-28] MEDS: Ondansetron 4 MG/2 ML VIAL IVP (20:37)
[2018-12-28] MEDS: Atorvastatin 40 MG TAB PO (22:16)
[2018-12-29 00:15] VITALS: BP 130/73; PULSE 77; RESP 20; TEMP 37.4; O2SAT 93
[2018-12-29] MEDS: oxyCODONE 5 MG TAB PO ×3 (03:02→12:21)
[2018-12-29 04:08] VITALS: BP 154/77; PULSE 83; RESP 18; TEMP 37.5; O2SAT 92
[2018-12-29] MEDS: Normal Saline Flush 10 ML SYR IVP ×2 (04:22→12:22)
[2018-12-29] MEDS: Ketorolac 15 MG/ML VIAL IVP ×2 (04:22→12:21)
[2018-12-29] MEDS: Enoxaparin 40 MG/0.4 ML SYR SC (06:49)
[2018-12-29] MEDS: Milk of Magnesia 30 ML CUP PO (07:47)
[2018-12-29] MEDS: Acetaminophen 325 MG TAB 650 MG PO (07:48)
[2018-12-29] MEDS: Nicotine 21 MG/24 HR PATCH TD (07:48)
[2018-12-29] MEDS: Baclofen 10 MG TAB 20 MG PO (07:48)
[2018-12-29] MEDS: Simethicone 80 MG CHEW PO (07:48)
[2018-12-29] MEDS: Docusate Sodium 100 MG CAP PO ×2 (07:48→13:34)
[2018-12-29 08:05] VITALS: BP 115/71; PULSE 90; RESP 18; TEMP 37; O2SAT 93
[2018-12-29 11:47] VITALS: BP 143/81; PULSE 71; RESP 16; TEMP 37; O2SAT 96
--- NOTE | 2018-12-29 13:16 | W.PM.PROGNOT ---
Date of Service Date of service: 12/29/18 Time of Service: 13:16 Assessment and Plan (1) S/P herniorrhaphy: Current visit: Yes Status: Acute A\\ POD #3 s/p open ventral hernia repair with mesh for incarcerated bowel P\\ Continue with po pain control Left GLEN drain removed Leave right drain for now (2) Constipation: Current visit: Yes Status: Acute A\\ Most likely multifactorial P\\ Dulcolax suppository Qualifiers: Constipation type: unspecified constipation type Qualified Code(s): K59.00 - Constipation, unspecified (3) disposition: Current visit: No Status: Acute Hopefully home later today if he is able to have a BM and his nausea subsides If able to go home would like to have him see Andrew Sanchez in our office on Tuesday for drain removal Patient has been signed out to Dr. Mariano Subjective Interval history since last seen: Gerardo is doing OK. He has not had a BM yet. He is passing a lot of gas. He is nauseated right now. He has had prune juice, coffee and Milk of Magnesia without success. His abdominal pain is controlled at this time Exam Resp Effort & Inspection: normal respiratory effort Auscultation: clear to auscultation bilaterally Cardio Rate: regular rate Rhythm: regular rhythm GI Inspection: incision (c/d/i) and other (Left drain with minimal drainage/ Right drain with about 60 cc so far today) Auscultation: normal bowel sounds Objective Objective Clinical Data: Vital Signs Temperature 98.6 F 12/29/18 11:47 Temperature Source Tympanic 12/29/18 11:47 Pulse 71 12/29/18 11:47 Pulse Rhythm Regular 12/29/18 09:30 Respiratory Rate 16 12/29/18 11:47 Respiratory Effort Non-Labored 12/29/18 09:30 Respiratory Depth Shallow 12/29/18 09:30 Respiratory Pattern Normal 12/29/18 09:30 Blood Pressure 143/81 H 12/29/18 11:47 Blood Pressure Position Sitting 12/26/18 21:05 Pulse Oximetry 96 12/29/18 11:47 Respiratory End-tidal CO2 38 12/27/18 02:48 Oxygen Delivery Method Room Air 12/29/18 11:47 Oxygen Flow Rate 0 12/29/18 11:47 Pain Level 8 12/29/18 07:48 Comment 12/27/18 05:40 Intake & Output 12/28/18 12/29/18 12/29/18 23:59 11:59 23:59 Intake Total 500 / 500 380 / 380 Output Total 755 / 1170 1672 / 1672 Balance -255 / -670 -1292 / -1292 Intake: IV 20 / 20 Oral 480 / 480 360 / 360 Output: Drainage 105 / 120 72 / 72 Left Abdomen 30 / 35 12 / 12 Right Abdomen 75 / 85 60 / 60 Urine 650 / 1050 1600 / 1600 Other: Urine Color Yellow Yellow Urine Appearance Clear Clear Urine Odor None None Voiding Methods Toilet Toilet Laboratory Results WBC 16.00 k/cumm (4.4-10.8) H 12/28/18 06:25 RBC 4.51 m/cumm (4.50-6.00) 12/28/18 06:25 Hgb 13.5 g/dL (13.5-17.5) 12/28/18 06:25 Hct 41.3 % (40.0-50.0) 12/28/18 06:25 MCV 91.6 fL (80-95) 12/28/18 06:25 MCH 29.9 pg (27.0-33.0) 12/28/18 06:25 MCHC 32.7 g/dL (32.0-36.0) 12/28/18 06:25 RDW 14.9 % (11.8-14.1) H 12/28/18 06:25 Plt Count 291 x1000/uL (130-400) 12/28/18 06:25 MPV 10.5 fL (8.0-11.0) 12/28/18 06:25 Immature Gran % 0.2 12/28/18 06:25 80.6 12/28/18 06:25 12.4 12/28/18 06:25 6.3 12/28/18 06:25 0.4 12/28/18 06:25 0.1 12/28/18 06:25 Absolute Neutrophils 12.90 k/cumm (1.2-6.7) H 12/28/18 06:25 Absolute Lymphocytes 1.98 k/cumm (1.2-3.4) 12/28/18 06:25 Absolute Monocytes 1.01 k/cumm (0.11-0.7) H 12/28/18 06:25 Absolute Eosinophils 0.06 k/cumm (0.0-0.7) 12/28/18 06:25 Absolute Basophils 0.02 k/cumm (0.0-0.2) 12/28/18 06:25 Sodium 140 mmol/L (136-145) 12/28/18 06:25 Potassium 3.9 mmol/L (3.5-5.1) 12/28/18 06:25 Chloride 102 mmol/L (98-107) 12/28/18 06:25 Carbon Dioxide 28.2 mmol/L (21.0-32.0) 12/28/18 06:25 9.8 mmol/L (3-11) 12/28/18 06:25 BUN 12 mg/dL (7-18) 12/28/18 06:25 1.13 mg/dL (0.70-1.30) 12/28/18 06:25 >= 60.00 (mL/min/1.73m2) 12/28/18 06:25 Glucose 113 mg/dL (70-100) H 12/28/18 06:25 1.6 mmol/L (0.6-1.4) H 12/26/18 21:15 Calcium 8.8 mg/dL (8.5-10.1) 12/28/18 06:25 Magnesium 1.9 mg/dL (1.8-2.4) 12/26/18 21:15 0.4 mg/dL (0.2-1.0) 12/26/18 21:15 AST 18 U/L (15-37) 12/26/18 21:15 ALT 32 U/L (16-63) 12/26/18 21:15 99 U/L (46-116) 12/26/18 21:15 7.2 g/dL (6.4-8.2) 12/26/18 21:15 3.5 g/dL (3.4-5.0) 12/26/18 21:15 162 U/L (73-393) 12/26/18 21:15 Cancelled 12/26/18 21:56 Cancelled 12/26/18 21:56 Cancelled 12/26/18 21:56 Ur Specific [place] Cancelled 12/26/18 21:56 Cancelled 12/26/18 21:56 Cancelled 12/26/18 21:56 Cancelled 12/26/18 21:56 Cancelled 12/26/18 21:56 Cancelled 12/26/18 21:56 Cancelled 12/26/18 21:56 Ur Leukocyte Esterase Cancelled 12/26/18 21:56 Cancelled 12/26/18 21:56 Patient ABO/Rh A Positive 12/26/18 23:55 Antibody Screen Negative 12/26/18 23:55
--- NOTE | 2018-12-29 13:22 | W.PM.DS.N ---
Date of service: 12/29/18 Time of Service: 13:23 DS: Diagnosis Discharge Diagnosis (1) S/P herniorrhaphy: Status: Acute (2) Constipation: Status: Acute (3) disposition: Status: Acute Discharge Plan Disposition Patient Disposition: HOME Condition: Poor Discharge Details Chief Complaint: Abd Prob Clinical Impression: Abdominal pain, Ventral hernia Reason For Visit: INCARCERATED INCISIONAL HERNIA Admit Date/Time: 12/27/18 02:24 Admit Provider: Brenda Hansen Attending Provider: Brenda Hansen Primary Care Provider: Olegario Jay [facility] Course: Mr. Negrete is a pleasant 63-year-old gentleman who had been having ongoing abdominal pain for a few months. 4 days prior to coming to the hospital he started having increasing abdominal pain along his old incision. His pain was finally bad enough that he came to the emergency department on December 26. CT scan was done which showed multiple small hernias along the incision. Bowel was noted to go into the hernia sac. There is inflammation throughout the hernia sac and around the bowel. The patient's exam was also worrisome due to the amount of pain that he was in. He had guarding and rebound. Emergency surgery was recommended for reduction of the bowel and possible bowel resection as needed. His bowel was noted to be viable. There was edema noted. The fascia was noted to be thin and his rectus muscle was retracted. A large mesh was placed under the fascia and secured. 2 drains were left in place. Gerardo did well over next few days. He was able to tolerate a soft diet by late afternoon on tuesday. His pain was not well controlled and was using Iv narcotics. Oxycodon was increased to every 4 hours. ON Tuesday patient was slightly nauseated and had not had a BM. A suppository was given and he had results. He was discharged home on Oxycodon, po Toradol and Tylenol. He had one GLEN drain removed and has appointment to be seen on 01/01/19 to have the second GLEN drain removed. Home Meds and New Rx's Prescriptions: New acetaminophen [Tylenol] 325 mg Tablet 650 mg PO Q6H PRN PRN (Reason: Pain) Qty: 30 RF: 0 docusate sodium [Colace] 100 mg Capsule 100 mg PO TID Qty: 30 RF: 0 oxycodone 5 mg Tablet 5 mg PO Q4H PRN PRNQty: 20 RF: 0 ketorolac 10 mg tablet 10 mg PO Q6H PRN (Reason: pain) 5 Days Qty: 20 RF: 0 Continued baclofen 20 MG tablet 20 mg PO Q8H PRNRF: 0 atorvastatin [Lipitor] 40 MG tablet 1 tab PO HS RF: 0 Discharge Instructions Instructions: Staple Care (DC) Additional Instructions: Activity at Home after surgery: 1. Make sure you walk outside at least 4 times per day 2. You should be able to climb a flight of stairs 3. No driving while in pain or taking pain medications 4. No strenuous activity or heavy lifting for 6 weeks (open surgery) Diet, Nutrition, & wound healin. Avoid alcohol until after you are recovered from your surgery 2. Make sure to eat plenty of lean protein (meat, fish, eggs, cottage cheese, beans) 3. Eat a variety of fruits and vegetables. Eat plenty of high fiber foods to avoid constipation. 4. Drink plenty of liquids to stay hydrated and avoid constipation Pain Medications: 1. Tylenol 650 mg as needed every 6 hours as needed for pain 2. Toradol 10 mg every 6 hours as needed for pain 2. If a narcotic has been prescribed take as directed only for breakthrough pain For Constipation: 1. Colace for constipation Other: 1. You may shower daily. Do not scrub the incisions 2. Do not soak the incisions for 1 week 3. You may alternate ice and heat as needed for pain and swelling Wound Care: 1. Keep the incisions clean and dry Please call our office if you develop: 1. Fevers >101.5 2. Nausea or Vomiting 3. Worsening pain 4. Redness and thick discharge from the wounds If after hours please call the Hospital at and ask to speak to the on-call surgeon Stand Alone Forms: Nursing Discharge Form Referrals: Audrey Sanchez PA [[facility]] - 01/01/19 10:30 am Olegario Jay [Primary Care Provider] - Activity:: No lifting, pushing or pulling >20 lb x 6 weeks Equipment/Supplies:: No Equipment Needed Diet:: As Tolerated Exam Const General: cooperative, comfortable and no acute distress Orientation: alert and oriented x3 HENMT Head: normocephalic and atraumatic Resp Effort & Inspection: normal respiratory effort Auscultation: clear to auscultation bilaterally Cardio Rate: regular rate Rhythm: regular rhythm GI Inspection: incision (c/d/i) Palpation: soft and tender (appropriatly tendere along incison) Auscultation: normal bowel sounds DS: Data Vitals/I&O Vitals and I&O: Vital Signs Temperature 98.6 F 12/29/18 11:47 Temperature Source Tympanic 12/29/18 11:47 Pulse 71 12/29/18 11:47 Pulse Rhythm Regular 12/29/18 09:30 Respiratory Rate 16 12/29/18 11:47 Respiratory Effort Non-Labored 12/29/18 09:30 Respiratory Depth Shallow 12/29/18 09:30 Respiratory Pattern Normal 12/29/18 09:30 Blood Pressure 143/81 H 12/29/18 11:47 Blood Pressure Position Sitting 12/26/18 21:05 Pulse Oximetry 96 12/29/18 11:47 Respiratory End-tidal CO2 38 12/27/18 02:48 Oxygen Delivery Method Room Air 12/29/18 11:47 Oxygen Flow Rate 0 12/29/18 11:47 Pain Level 8 12/29/18 07:48 Comment 12/27/18 05:40 Intake & Output 12/28/18 12/29/18 12/29/18 23:59 11:59 23:59 Intake Total 500 / 500 380 / 380 Output Total 755 / 1170 1672 / 1672 Balance -255 / -670 -1292 / -1292 Intake: IV 20 / 20 Oral 480 / 480 360 / 360 Output: Drainage 105 / 120 72 / 72 Left Abdomen 30 / 35 12 / 12 Right Abdomen 75 / 85 60 / 60 Urine 650 / 1050 1600 / 1600 Other: Urine Color Yellow Yellow Urine Appearance Clear Clear Urine Odor None None Voiding Methods Toilet Toilet [facility] Medical History CVA (cerebral vascular accident) (Chronic) Hypercholesterolemia (Acute) Renal insufficiency, mild (Chronic) Surgical History S/P appendectomy (Acute) S/P herniorrhaphy (Acute ~12/26/18) S/P shoulder surgery (Acute) Social History Smoking/Tobacco Use Status: Current every day Alcohol Intake: current Drug use: Never Household members: spouse Do you feel safe in your relationship?: Yes
[2018-12-29] MEDS: Bisacodyl 10 MG SUPP PR (13:34)
--- NOTE | 2018-12-29 14:33 | PDOC.CMDIS ---
- If Service Date Differs Date of service: 12/29/18 Time of Service: 14:33 LACE Index Scoring Tool - Questions: Length of Stay (in days): 3 Acuity (Admit via E.D.?): Yes Comorbidities: Cerebrovascular Disease E.D. Visits: 1 - Answers: Total Score: 8 Risk of Readmission: Low Risk Care Management Discharge Reason for Hospitalization: Abdominal Pain, ventral hernia Discharge Plan: Gerardo will return home after medically cleared for discharge. CM discussed discharge with Greg, who was comfortable with the plan. CM sent referral to [facility] for options counseling and MOW. Greg has his own walker at home, and is planning on purchasing a shower seat and raised toilet seat. CM discussed options for purchasing these items. Follow up appointment on 01/01/19 for second GLEN drain removal. Greg will be driven home by his , Ruthy, via private vehicle. Patient/Family Education Needs: Review discharge instructions. CM discussed Ask Me Three with Greg, who was engaged in the conversation. Services Needed at Discharge: Home Delivered Meals
--- NOTE | 2018-12-29 15:13 | CHAPLAIN ---
Gerardo was resting in bed when I visited. He told me about his surgery, and said he likes Dr. Hansen. In the past, and this time, Gerardo said he tends to wait until he really can't stand the pain before coming n into the ER. Gerardo lives with his in a [facility], and she helps take care of grandkids. He is disabled but works at [employer] in the [employer] at a job he likes. He stopped drinking 20 years ago and has felt good for the most part. He relaxes by spending time with his and grandkids. He hopes to go home tomorrow.
== END 2018-12-29 16:20 | disposition home or self-care (01) | DRG 337 ==
LOC: ER 12-27 00:07 → SUR 12-27 00:27 → MS 12-27 02:57
PROVIDERS: Admitting Provider Surgery; Emergency Provider Emergency Medicine; PCP Nurse Practitioner; Visit Provider Surgery
PROC: 0WUF0JZ Supplement Abdominal Wall with Synthetic Substitute, Open Approach (ICD-10-PCS; CPT 49000; principal; 2018-12-27 00:25)
DX: K43.0 Incisional hernia with obstruction, without gangrene (principal); K66.0 Peritoneal adhesions (postprocedural) (postinfection); G89.18 Other acute postprocedural pain; K59.00 Constipation, unspecified; N18.9 Chronic kidney disease, unspecified; E78.00 Pure hypercholesterolemia, unspecified; F17.210 Nicotine dependence, cigarettes, uncomplicated; Z86.73 Personal history of transient ischemic attack (TIA), and cerebral infarction without residual deficits
CPT/HCPCS: 49568; 49561; 44005; 36415; 80048; 80053; 83690; 86850; 86900; 86901; 93005; 96361; 96374; 96375; 99223; 99285; J1650; NC; 74177; 81003; 83605; 83735; 85025; 93010; C1781; J1100; J1885; J2405; J2543; J3010; J3490

== ENCOUNTER → 2019-01-01 10:27 | Outpatient (BNVA) | payer MEDICARE, SELFPAY | PROVIDERS: PCP Nurse Practitioner; Referring Provider Nurse Practitioner; Visit Provider Physical Therapy Assistant | DX: Z48.815 Encounter for surgical aftercare following surgery on the digestive system (principal); Z87.19 Personal history of other diseases of the digestive system ==

== ENCOUNTER → 2019-01-04 09:27 | Outpatient (BNVA) | payer MEDICARE, SELFPAY | PROVIDERS: PCP Nurse Practitioner; Referring Provider Nurse Practitioner; Visit Provider Physical Therapy Assistant | DX: Z48.815 Encounter for surgical aftercare following surgery on the digestive system (principal); Z48.02 Encounter for removal of sutures ==

== ENCOUNTER → 2019-01-19 09:52 | Outpatient (BNVA) | payer MEDICARE, SELFPAY | PROVIDERS: PCP Nurse Practitioner; Referring Provider Nurse Practitioner; Visit Provider Physical Therapy Assistant | DX: Z48.815 Encounter for surgical aftercare following surgery on the digestive system (principal); Z87.19 Personal history of other diseases of the digestive system ==

== ENCOUNTER → 2019-02-02 09:26 | Outpatient (BNVA) | payer MEDICARE, SELFPAY | PROVIDERS: PCP Nurse Practitioner; Referring Provider Nurse Practitioner; Visit Provider Surgery | DX: Z48.815 Encounter for surgical aftercare following surgery on the digestive system (principal); Z87.19 Personal history of other diseases of the digestive system ==

== ENCOUNTER 2019-10-17 01:46 | Outpatient (CLI) | payer MEDICARE, SELFPAY ==
--- NOTE | 2019-10-17 | DI.CTLCSR_ITS ---
EXAM: CT CHEST LUNG CANCER SCREEN CLINICAL HISTORY: CURRENT SMOKER, F17.210,SCREENING FOR LUNG CA TECHNIQUE: COMPARISON: No exams were available for comparison FINDINGS: Chest CT was performed utilizing low-dose lung cancer screening protocol. Images obtained through th e upper abdomen show unremarkable appearance of visualized portions of liver, spleen, pancreas, adren als, and kidneys. There is no gross mediastinal or hilar adenopathy. Tracheobronchial tree appears intact. There is n o significant pulmonary nodule or consolidation identified. There is scarring at the right lung base essentially unchanged from prior CT of April 2017. IMPRESSION: Lung RADS Cat 1 - Negative: No nodules and definitely benign nodules Continue annual screening with LD CT in 12 months.
--- NOTE | 2019-10-17 | DI.US_ITS ---
EXAM: US AAA SCREENING CLINICAL HISTORY: SCREENING FOR AAA, CURRENT SMOKER,Z13.6 TECHNIQUE: Ultrasound performed using standard protocol. COMPARISON: US Cardiac from 05/19/2017 FINDINGS: Limited abdominal ultrasound was performed to evaluate for possible abdominal aortic aneurysm the mid abdominal aorta is upper limits of normal in size at about 27 millimeters in diameter. Proximal and distal aorta within normal limits in size. Right common iliac artery measures about 17 millimeters in greatest diameter which is borderline aneu rysmal. Left common iliac measures 15 millimeters in diameter. No evidence of leakage or pseudoaneurysm in region surveyed. IMPRESSION: No evidence of abdominal aortic aneurysm. DATA REPOSITORY:
== END 2019-10-17 02:06 ==
PROVIDERS: PCP Nurse Practitioner; Visit Provider Nurse Practitioner
DX: Z13.6 Encounter for screening for cardiovascular disorders (principal); Z12.2 Encounter for screening for malignant neoplasm of respiratory organs; F17.210 Nicotine dependence, cigarettes, uncomplicated
CPT/HCPCS: 76706; G0297

== ENCOUNTER 2020-08-28 14:24 | Inpatient (IN) | payer OTHER, SELFPAY ==
[2020-08-28] VITALS (67 sets, daily range): BP systolic 108–152; BP diastolic 58–86; PULSE 54–80; RESP 8–23; TEMP 36.5; O2SAT 92–98
--- NOTE | 2020-08-28 14:15 | RT.EKG_ITS ---
APPROVED REPORT Exam: Resting ECG Reason for Exam: Chest pain Patient Location: E HR:70 bpm ECG Measurements Heart Rate 70 AXIS CA 155 P -1 QRSd 100 QRS 55 QT 391 T 58 QTc 422 Conclusion Sinus rhythm...normal P axis, V-rate 60- 99
--- NOTE | 2020-08-28 14:30 | DI.RAD_ITS ---
Exam(s) XR CHEST 2V PA LATERAL EXAM: XR CHEST 2V PA LATERAL CLINICAL HISTORY: Chest pain TECHNIQUE: 2D digital imaging was performed. COMPARISON: CR PORTABLE CHEST ONE VIEW from 05/18/[address] CHEST LUNG CANCER SCREEN from 10/17/2019 FINDINGS: The heart is not enlarged. The lungs are clear and well expanded. No pleural effusion seen. Mediastin al contours appear intact. IMPRESSION: Normal chest. RADIATION DOSE DELIVERED: Total DLP
--- NOTE | 2020-08-28 14:38 | ED.GENADUL_ITS ---
Discharge Plan Disposition Patient Disposition: [facility] INPATIENT Condition: Stable Discharge Details Clinical Impression: Chest pain Admit Date/Time: 08/28/20 18:34 Admit Provider: Boby Britton Attending Provider: Boby Britton Primary Care Provider: Olegario Jay ED Provider: Olegario Winston Discharge Data Discharge Date/Time-TO BE ENTERED AT DEPARTURE: 08/28/20 20:33 Medical Decision Making <Darline Garza - Last Filed: 08/29/20 12:07> 65-year-old male presents to the ER chief complaint of chest pain which began 3 days ago. Associated with nausea, left arm tingling and questionable blacking out for the last few days. Patient states that he would sit in the chair and his head would roll back. He is a daily smoker. Does not take aspirin daily. He is complaining of 5 out of 10 midsternal chest pain that radiates around to his left side of his chest. Upon initial exam chest pain is reproducible with palpation. Lungs are clear to auscultation bilaterally. He has a past medical history of CVA, high cholesterol, renal insufficiency. EKG was reviewed by Dr. Lamin Blake ER attending, please see his official report. Initial work-up ordered including serial troponins, CMP, CBC, magnesium, chest x-ray 324 mg chewable baby aspirin and nitro 0.4 mg sublingual x3 as needed chest pain ordered. Initial heart score without the troponin is approximately a 5. CBC shows a white blood cell count of 10.93, absolute neutrophils 0.79, CMP shows sodium 142, potassium 4.1, BUN 24 creatinine 1.2, GFR greater than 60 calcium is slightly low at 8.4 initial troponin I is less than 0.05. 1510: Nitro 0.4 mg sublingual x2 were given per RN report chest pain decreased from an 8 to a 0-1. Discussed initial labs with patient including negative troponin and within normal limits EKG. CLINICAL HISTORY: Chest pain TECHNIQUE: 2D digital imaging was performed. COMPARISON: CR PORTABLE CHEST ONE VIEW from 05/18/[address] CHEST LUNG CANCER SCREEN from 10/17/2019 FINDINGS: The heart is not enlarged. The lungs are clear and well expanded. No pleural effusion seen. Mediastinal contours appear intact. IMPRESSION: Normal chest. Care is to be handed off to oncoming provider Olegario VIERA pending serial troponin and disposition. Patient was hemodynamically stable, alert and oriented at the time of hand off. <AYLIN Sanders - Last Filed: 08/28/20 18:41> He was seen care of this 65-year-old male from my colleague ROOSEVELT Garza at shift change. Please see her initial HPI and physical examination. Ensure this is a 65-year-old gentleman, current smoker, past medical history of CVA, hyperlipidemia, obesity, complaining of left-sided chest pain and shortness of breath for the past few days that radiates down his left arm. He also reports that he has been blacking out. At time of signout initial cardiac work-up completed and unremarkable. Patient was given 2 sublingual nitro and was pain-free. Will add on a D-dimer, and awaiting repeat troponin and EKG. Heart score is 5. D-dimer of 517, negative when age-adjusted. Will not pursue CTA of chest. Repeat EKG performed at 1737. Please see official report by Dr. Aguilar. Sinus bradycardia, ventricular rate of 59. No STEMI. No dynamic changes when compared to initial EKG Repeat troponin remains less than 0.05. Upon reassessment patient is resting comfortably, denies any current chest pain. Given his age, multiple, but 80s, heart score of 5, I do believe admitting for chest pain rule out is reasonable. I will discuss the case with our hospitalist team. Case discussed with Dr. Britton who was agreeable to admission. I will place holding orders Medical Records Medical records reviewed: Yes I reviewed the patient's medical records. HPI <Darline Garza - Last Filed: 08/29/20 12:07> General Mode of arrival: ambulatory . Date/Time Provider Initiated Documentation: 08/28/20 14:24 . Limitations to Documentation: no limitations . Information obtained by: patient . HPI Narrative: 65-year-old male presents to the ER chief complaint of chest pain which began 3 days ago. Associated with nausea, left arm tingling and questionable blacking out for the last few days. Patient states that he would sit in the chair and his head would roll back. He is a daily smoker. Does not take aspirin daily. He is complaining of 5 out of 10 midsternal chest pain that radiates around to his left side of his chest. Upon initial exam chest pain is reproducible with palpation. Lungs are clear to auscultation bilaterally. He has a past medical history of CVA, high cholesterol, renal insufficiency Related Data Home Medications Medication Instructions Recorded Confirmed baclofen 20 mg PO Q8H PRN 06/26/15 08/28/20 atorvastatin [Lipitor] 1 tab PO HS 09/11/16 08/28/20 acetaminophen [Tylenol] 650 mg PO Q6H PRN PRN #30 tab 12/29/18 08/28/20 docusate sodium [Colace] 100 mg PO TID #30 cap 12/29/18 08/28/20 aspirin [Aspir-81] 81 mg PO DAILY PRN PRN 08/28/20 08/28/20 diclofenac sodium 75 mg PO BID PRN PRN 08/28/20 08/28/20 propranolol 20 mg PO DAILY 08/28/20 08/28/20 Previous Rx's Medication Instructions Recorded acetaminophen [Tylenol] 650 mg PO Q6H PRN PRN #30 tab 12/29/18 docusate sodium [Colace] 100 mg PO TID #30 cap 12/29/18 Allergies Allergy/AdvReac Type Severity Reaction Status Date / Time ibuprofen [From Motrin] AdvReac Intermediate face Verified 08/28/20 14:34 shrinks in lactose AdvReac Mild Diarrhea Verified 08/28/20 14:34 nicotine [From Nicoderm CQ] AdvReac Mild Topical Verified 08/28/20 14:34 Irritation varenicline tartrate AdvReac Mild feels Verified 08/28/20 14:34 [From Chantix] wierd General Stated Complaint: Chest Pain ELVIS: 2 Review of Systems <Darline Garza - Last Filed: 08/29/20 12:07> Narrative: Constitutional: Negative for weight loss, alert and oriented, well groomed, normal body habitus, appears uncomfortable. HEENT: Denies trauma, headaches, blurry vision, nasal discharge, sore throat, trouble swallowing. Chest: Denies palpitations, irregular rhythm, positive midsternal chest pain 5 out of 10. Respiratory: Denies Shortness of breath, cough, hemoptysis. GI: Denies abdominal pain, nausea, vomiting, diarrhea, constipation. : Denies dysuria, hematuria, flank pain, rectal bleeding. Neuro: Denies dizziness, blurry vision, weakness, syncope, headache or facial numbness. Hematologic: Denies easy bruising, intolerance to heat or cold, hair loss. PFSH <Darline Garza - Last Filed: 08/29/20 12:07> Medical History (Updated 08/29/20 @ 11:49 by Everett Gonsalez MD) CVA (cerebral vascular accident) Hypercholesterolemia Renal insufficiency, mild Surgical History S/P appendectomy S/P herniorrhaphy (~12/26/18) S/P shoulder surgery Family History (Updated 08/28/20 @ 22:30 by Boby Britton) Father Heart disease Social History (Updated 08/28/20 @ 22:32 by Boby Britton) Smoking/Tobacco Use Status: Current every day Tobacco Type: cigarettes Smoking risk assessment performed?: Yes Alcohol Intake: former Drug use: Never Household members: spouse Do you feel safe in your relationship?: Yes Additional Social history: [facility] with , daughter, and 2 grandkids 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 Exam <Darline Garza - Last Filed: 08/29/20 12:07> Narrative Exam Narrative: Constitutional: Alert and oriented x3. Appears stated age. Normal body habitus. Head: Normocephalic, no trauma. Eyes: Pupils PERRLA, Red reflex noted, EOM's intact. Eyelids symmetrical without lesions, discharge, or swelling. ENT: Bilateral TM's WNL, External ear normal to inspection, no mastoid TTP, swelling, or erythema, Nasal turbinates WNL, no nasal discharge. Normal dentition, Posterior pharynx WNL, no exudate. Chest: RRR, Normal S1, S2, distal pulses intact. Resp: Lungs clear to auscultation bilaterally, no wheezes, rales, or rhonchi. Musculoskeletal: Normal gait, 5/5 strength to all four extremities. Skin: No suspicious rashes or lesions. Capillary refill less than 2 sec. Neurologic: Cranial nerves II-XII intact. Alert and oriented x 3. DTR's intact. Hematologic/Lymphatic: No ecchymosis, no lymphadenopathy. Course <Darline Garza - Last Filed: 08/29/20 12:07> Vital Signs Vital signs: Vital Signs Temperature 36.5 C 08/28/20 14:30 Pulse 69 08/28/20 14:30 Respiratory Rate 17 08/28/20 14:30 Blood Pressure 147/76 H 08/28/20 14:30 Pulse Oximetry 96 08/28/20 14:30 Temperature 36.5 C 08/28/20 14:30 Temperature Source Skin 08/28/20 14:30 Pulse 69 08/28/20 14:30 Respiratory Rate 17 08/28/20 14:30 Respiratory Effort Non-Labored 08/28/20 14:30 Blood Pressure 147/76 H 08/28/20 14:30 Blood Pressure Position Sitting 08/28/20 14:30 Pulse Oximetry 96 08/28/20 14:30 Oxygen Delivery Method Room Air 08/28/20 14:30 Oxygen Flow Rate 0 08/28/20 14:30 Pain Level 5 08/28/20 14:30 Sign Out <Darline Garza - Last Filed: 08/29/20 12:07> Sign Out Data: Sign Out Comment: Pending Second Troponin and possible admission Last updated by Darline Garza at 08/28/20 16:01
[2020-08-28] MEDS: Aspirin 81 MG CHEW 324 MG CH (14:44)
[2020-08-28] MEDS: nitroGLYcerin 0.4 MG TAB SL ×2 (14:45→14:57)
[2020-08-28 14:50] LABS: Abs Immature Grans 0.04 10^3/uL (0.0-0.06); Absolute Basophil Count 0.08 10^3/uL (0.0-0.2); Absolute Eosinophil Count 0.52 10^3/uL (0.0-0.7); Absolute Lymphocyte Count 2.75 10^3/uL (1.2-3.4); Absolute Monocyte Count 0.74 10^3/uL (0.1-0.8); Basophils % 0.7; Eosinophils % 4.8; Immature Grans % 0.4; Lymphocytes % 25.2; MCH 30.2 pg (27.0-33.0); MCHC 32.6 % (32.0-36.0); MCV 92.9 fL (80-95); Monocytes % 6.8; Neutrophils % 62.1; Nucleated RBC 0 %; Platelet Count 291 10^3/uL (130-400); RBC 4.63 10^6/uL (4.36-5.78); RDW 14.6 % (11.8-14.1); RDW-SD 49.7 fL; WBC 10.93 10^3/uL (4.4-10.8)
[2020-08-28 14:51] LABS: Absolute Neutrophil Count 6.79 10^3/uL (1.2-6.7)
[2020-08-28 14:59] LABS: ALT 36 U/L (16-63); AST 17 U/L (15-37); Albumin 3.6 g/dL (3.4-5.0); Alkaline Phosphatase 96 U/L (46-116); Anion Gap 9.5 mmol/L (3-11); BUN 24 mg/dL (7-18); Bilirubin, Total 0.3 mg/dL (0.2-1.0); CO2 26.5 mmol/L (21.0-32.0); CREATININE 1.2 mg/dL (0.70-1.30); Calcium 8.4 mg/dL (8.5-10.1); Chloride 106 mmol/L (98-107); Glucose 94 mg/dL (74-106); Potassium 4.1 mmol/L (3.5-5.1); Sodium 142 mmol/L (136-145); Total Protein 7.1 g/dL (6.4-8.2); Troponin I < 0.05 ng/mL (<0.06)
[2020-08-28 16:39] LABS: D-Dimer 517 ng/mlFEU (<500)
--- NOTE | 2020-08-28 17:30 | RT.EKG_ITS ---
APPROVED REPORT Exam: Resting ECG Reason for Exam: chest pain Patient Location: E HR:59 bpm ECG Measurements Heart Rate 59 AXIS [place] 153 P 5 QRSd 104 QRS 50 QT 438 T 60 QTc 436 Conclusion Sinus bradycardia...rate< 60
[2020-08-28 18:07] LABS: Troponin I < 0.05 ng/mL (<0.06)
--- NOTE | 2020-08-28 18:31 | NUR.NOTE ---
Nursing Note: Ruthy [phone]
[2020-08-28 19:17] LABS: Source Nasal/Nares
[2020-08-28 21:41] LABS: COVID-19 PCR Negative (Negative)
[2020-08-28] MEDS: Atorvastatin 40 MG TAB 80 MG PO (21:44)
[2020-08-28] MEDS: Enoxaparin 40 MG/0.4 ML SYR SC (21:45)
--- NOTE | 2020-08-28 22:21 | W.PM.HP.N ---
Date of service: 08/28/20 Time of Service: 22:08 Assessment and Plan Assessment and plan (1) Chest pain: Status: Acute Assessment and plan: Patient has progressive chest pain that is consistent with angina. He has known risk factors. 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 (2) CVA (cerebral vascular accident): Status: Chronic Assessment and plan: No signs of acute CVA. He is on atorvastatin 40mg, repeat lipids to assure at goal <70. Continue baby ASA. (3) Tobacco dependence: Status: Acute Assessment and plan: DIscussed this major risk factor for CV disease. He has cut back and wants to quit. Supported. NRT while here. Didn't tolerate chantix. (4) DVT prophylaxis: Status: Acute Assessment and plan: LMWH (5) Discharge planning issues: Status: Acute Assessment and plan: home after cardiac evaluation, He is full code History of Present Illness History of Present Illness Chief Complaint: chest pain Narrative: 65-year-old smoker with history of CVA presenting for an episode after some pain in the chest the past several days to one week. Patient started getting episodes of moderate aching pain across lower sternum area about a week ago. Last about 5 to 10 minutes. Associated with with lightheadedness, nausea, shortness of breath, and blurry vision. It improves with rest, he also takes 1-2 small aspirin tablet when he gets the pain. He has noted some episodes when he is more active at work, but also happens at rest. This afternoon at 1pm he was sitting using his tablet and had an episode that made him feel like he would pass out, so decided to go to ED. Has not had similar episodes previous to this week. Pain also did improve with NTG in the ED. No pain at this moment. He is taking his medication regularly. Review of Systems Constitutional Constitutional: Denies anorexia, Denies chills, Denies difficulty sleeping, Denies fever(s), Reports headache(s) and Denies weakness Eyes Eyes: Denies irritation and Denies eye pain ENT Ears, Nose, Mouth, and Throat: Reports change in voice (a little hoarse,), Denies dizziness, Reports headache(s), Denies nasal congestion, Denies nasal discharge, Denies post nasal drip and Denies sore throat Cardiovascular Cardiovascular: Denies palpitations, Reports dyspnea on exertion and Denies orthopnea Respiratory Respiratory: Denies cough, Denies excessive phlegm production, Reports dyspnea on exertion and Denies wheezing Gastrointestinal Gastrointestinal: Denies abdominal pain, Denies heartburn, Denies diarrhea and Denies vomiting Genitourinary Genitourinary: Denies hematuria, Denies dysuria and Denies urinary incontinence Musculoskeletal Musculoskeletal: Reports back pain Integumentary/Breasts Skin/Breast: Denies rash and Denies skin ulcer Neurologic Neurologic: Denies dizziness, Reports headache(s), Denies sensory deficit and Denies weakness Psychiatric Psychiatric: Denies mood swings and Denies panic attacks Endocrine Endocrine: Denies palpitations Hematologic/Lymphatic Hematologic/Lymphatic: Denies easy bleeding Allergic/Immunologic Allergic/Immunologic: Denies wheezing PFSH Medical History (Updated 08/28/20 @ 22:36 by Boby Britton) CVA (cerebral vascular accident) Hypercholesterolemia Renal insufficiency, mild Surgical History S/P appendectomy S/P herniorrhaphy (~12/26/18) S/P shoulder surgery Family History (Updated 08/28/20 @ 22:30 by Boby Britton) Father Heart disease Social History (Updated 08/28/20 @ 22:32 by Boby Britton) Smoking/Tobacco Use Status: Current every day Tobacco Type: cigarettes Smoking risk assessment performed?: Yes Alcohol Intake: former Drug use: Never Household members: spouse Do you feel safe in your relationship?: Yes Additional Social history: Lives in [facility] in [facility] with , daughter, and 2 grandkids 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 Meds Allergies and Home Medications Allergies Allergy/AdvReac Type Severity Reaction Status Date / Time ibuprofen [From Motrin] AdvReac Intermediate face Verified 08/28/20 14:34 shrinks in lactose AdvReac Mild Diarrhea Verified 08/28/20 14:34 nicotine [From Nicoderm CQ] AdvReac Mild Topical Verified 08/28/20 14:34 Irritation varenicline tartrate AdvReac Mild feels Verified 08/28/20 14:34 [From Chantix] wierd Home Medications Medication Instructions Recorded Confirmed Type baclofen 20 mg PO Q8H PRN 06/26/15 08/28/20 History atorvastatin [Lipitor] 1 tab PO HS 09/11/16 08/28/20 History acetaminophen [Tylenol] 650 mg PO Q6H PRN PRN #30 tab 12/29/18 08/28/20 Rx docusate sodium [Colace] 100 mg PO TID #30 cap 12/29/18 08/28/20 Rx aspirin [Aspir-81] 81 mg PO DAILY PRN PRN 08/28/20 08/28/20 History diclofenac sodium 75 mg PO BID PRN PRN 08/28/20 08/28/20 History propranolol 20 mg PO DAILY 08/28/20 08/28/20 History Exam Narrative Exam Narrative: GEN: Alert and oriented, pleasent and cooperative, gives linear history. No acute distress at rest. HEENT: Head atraumatic. Conjunctiva clear, no icterus. PEERL, EOMI. no rhinorrhea. MMM, OP benign. Neck is supple with no masses or lymphadenopathy, trachea midline LUNGS: CTAB with normal effort CV: RRR with no murmurs, gallops, or rubs. ABD: +BS, soft, NT/ND EXT: no cyanosis, clubbing. trace ludy edema MSK: No joint redness or swelling NEURO: CN 2-12 grossly intact. Normal movement of 4 extremities. Normal speech and coordination SKIN: No rashs or open wounds. PSYCH: normal mood and affect Results Imaging Chest x-ray: report reviewed EKG: report reviewed Labs Result diagrams: 08/28/20 14:22 08/28/20 14:22 Labs: Laboratory Results - last 24 hr 08/28/20 08/28/20 08/28/20 14:22 14:22 14:32 WBC 10.93 H RBC 4.63 Hgb 14.0 Hct 43.0 MCV 92.9 MCH 30.2 MCHC 32.6 RDW 14.6 H Plt Count 291 MPV 10.0 Immature Gran % 0.4 Neutrophils % 62.1 Lymphocytes % 25.2 Monocytes % 6.8 Eosinophils % 4.8 Basophils % 0.7 Nucleated RBC % 0 Absolute Neutrophils 6.79 H Absolute Lymphocytes 2.75 Absolute Monocytes 0.74 Absolute Eosinophils 0.52 Absolute Basophils 0.08 D-Dimer 517 H Sodium 142 Potassium 4.1 Chloride 106 Carbon Dioxide 26.5 Anion Gap 9.5 BUN 24 H Creatinine 1.2 Estimated GFR/1.73 m2 >= 60.00 Glucose 94 Calcium 8.4 L Magnesium 2.0 Total Bilirubin 0.3 AST 17 ALT 36 Alkaline Phosphatase 96 Troponin I < 0.05 Total Protein 7.1 Albumin 3.6 COVID-19 Source SARS-CoV-2 (PCR) 08/28/20 08/28/20 17:39 18:33 WBC RBC Hgb Hct MCV MCH MCHC RDW Plt Count MPV Immature Gran % Neutrophils % Lymphocytes % Monocytes % Eosinophils % Basophils % Nucleated RBC % Absolute Neutrophils Absolute Lymphocytes Absolute Monocytes Absolute Eosinophils Absolute Basophils D-Dimer Sodium Potassium Chloride Carbon Dioxide Anion Gap BUN Creatinine Estimated GFR/1.73 m2 Glucose Calcium Magnesium Total Bilirubin AST ALT Alkaline Phosphatase Troponin I < 0.05 Total Protein Albumin COVID-19 Source Nasal/nares SARS-CoV-2 (PCR) Negative Last Vital Signs Temp 36.5 C 08/28/20 20:31 Pulse 64 08/28/20 20:31 Resp 19 08/28/20 20:31 BP 152/86 H 08/28/20 20:31 Pulse Ox 97 08/28/20 20:31 COVID-19 Screening Have you, or household traveled for leisure in last 14 days?: No Had IN PERSON contact w/suspected or confirmed C-19 person: No
[2020-08-28 23:28] LABS: Troponin I < 0.05 ng/mL (<0.06)
[2020-08-29] VITALS (23 sets, daily range): BP systolic 105–150; BP diastolic 62–83; PULSE 54–100; RESP 16–20; TEMP 36.1–36.8; O2SAT 91–97
[2020-08-29] MEDS: Acetaminophen 325 MG TAB 650 MG PO (03:57)
[2020-08-29 06:45] LABS: Hemoglobin A1C 5.8 % (<5.7)
[2020-08-29 06:52] LABS: Calculated LDL 114 mg/dL (<100); Cholesterol 176 mg/dL (<200); HDL Cholesterol 27 mg/dL (40-60); Triglyceride 177 mg/dL (<150)
[2020-08-29] MEDS: Docusate Sodium 100 MG CAP PO ×3 (07:39→20:17)
[2020-08-29] MEDS: Normal Saline Flush 10 ML SYR IVP (07:39)
[2020-08-29] MEDS: Propranolol 20 MG TAB PO (07:39)
--- NOTE | 2020-08-29 11:19 | DI.US_ITS ---
APPROVED REPORT EXAM: Comprehensive 2D, Doppler, and color-flow Echocardiogram Patient Location: In-Patient Room/Bed: 231 Airframe Technician: Lin Penaloza RDCS (AE) Indications: Chest pain Other Information Study Quality: Adequate Conclusion Normal left ventricular wall thickness and chamber size. Estimated ejection fraction is 60%. There are no segmental wall motion abnormalities Normal right ventricular size and systolic function Both atria are normal in size There are no structural valvular abnormalities Normal estimated right ventricular systolic pressure Mildly dilated ascending aorta measuring 3.51 cm Wall motion Left Ventricle The left ventricle is normal size. The left ventricular systolic function is normal. The left ventric ular ejection fraction is within the normal range. There is normal left ventricular wall thickness. T here is normal LV segmental wall motion. There is no ventricular septal defect visualized. LVEF is 61 %. Right Ventricle The right ventricle is normal size. The right ventricular systolic function is normal. The RVSP is 17 .4mmHg. Atria The left atrium size is normal. The right atrium size is normal. The interatrial septum is intact wit h no evidence for an atrial septal defect. Aortic Valve The aortic valve is normal in structure. Aortic valve is trileaflet. There is no aortic valvular sten osis. Trace aortic regurgitation. Mitral Valve The mitral valve is normal in structure. No evidence of mitral valve stenosis. Trace mitral regurgita tion. Tricuspid Valve The tricuspid valve is normal in structure. There is no tricuspid valve stenosis. Trace tricuspid reg urgitation. Pulmonic Valve The pulmonary valve is normal in structure. There is no pulmonic valvular stenosis. There is no pulmo diane valvular regurgitation. Great Vessels The aortic root is normal in size. The ascending aorta is mildly dilated.3.51 cm Aortic arch is not w ell visualized. IVC is normal in size and collapses >50% with inspiration. Pericardium There is no pericardial effusion. 2D Dimensions IVSD d PLAX 1.03 cm M: 0.6-1.2 LV Vol A2C d MOD 133.7 mL LVPW d PLAX 1.01 cm M: 0.6 - 1.2 LV Vol A4C d MOD 112.0 mL LVID d PLAX 4.83 cm M: 4.2 - 5.8 LA vol/ BSA A2C s A-L 22.2 mL/m2 LVDs 3.35 cm M: 2.5 - 4.0 LA vol/ BSA A4C s A-L 20.4 mL/m2 Ao Root d 3.32 cm M: 3.1 - 3.7 LA Vol/ BSA Biplane s A-L 21.5 mL/m2 RA Area A4C 14.78 cm2 LA Area A4C s MOD 18.17 cm2 RA Vol/ BSA A4C s A-L 15.7 mL/m2 LA Area A2C s MOD 18.71 cm2 Ao Asc Diam d 3.51 cm M: 2.6 - 3.4 LV EF A4C MOD 61.9 % LV EF Teichholz 57.7 % LV EF A2C MOD 58.7 % LVEF (Raymundo's) 60.95 % M: 52 - 72 LV EF Biplane MOD 60.9 % LV Volume 88.77 mL M: 62 - 150 SV 76.32 mL LV Volume Index 37.14 mL/m2 M: 34 - 74 SV Index 31.89 mL/m2 LV Vol Biplane MOD 125.2 mL FS 30.40 % M-Mode TAPSE 2.14 cm (M/F) >1.7 LV Diastology MV E' medial 0.083 (>0.07 m/s) E/A Ratio 1.6 LV E/e MED 9.35 (<14) MV E Vmax 0.78 (0.4-1.3 m/s) MV E' lateral 0.096 (>0.1 m/s) MV A Vmax 0.50 (0.4-1.3 m/s) LV E/e LAT 8.10 (<14) MV E/A Ratio 1.43 MV E/E' medial 9.35 MV E/E' lateral 8.11 Aortic Valve LVOT Area 3.34 cm2 AoV Area Vmax 3.06 cm2 LVOT Vmax 1.02 m/s AoV Area/ BSA (Vmax) 1.28 cm2/m2 LVOT Mean Michael. 0.60 m/s ADAL Mean Michael. 2.62 cm2 LVOT Peak Grad 4.2 mmHg ADAL Mean Michael. Index 1.09 cm2/m2 LVOT Mean Grad 1.8 mmHg LVOT VTI 0.235 m LVOT Diam s 2.05 cm AoV Vmax 1.12 m/s Velocity Ratio 0.91 AoV Mean Michael. 0.76 m/s AoV Peak Grad 5.0 mmHg LVOT SV 78.30 mL AoV Mean Grad 2.6 mmHg AoV VTI 0.265 m AoV Area VTI 2.95 cm2 AoV Area/ BSA (VTI) 1.23 cm/m2 Mitral Valve MV DT 203 (160-240 msec) MV PHT 59 msec MV Area PHT 3.74 cm2 MV VTI 0.323 m MV Area VTI 2.42 (4.0-6.0 cm2) Pulmonary Valve PV Vmax 0.92 (0.5-1.5 m/s) RVOT Peak Gr. 1.49 mmHg PV Peak Grad 3.4 mmHg RVOT Mean Gr. 0.80 mmHg PV Mean Grad 1.8 mmHg RVOT VTI 0.163 m PV VTI 0.219 m RVOT Vmax 0.61 m/s Tricuspid Valve TR Peak Grad 14.3 mmHg TR Vmax 1.90 m/s RA Pressure 3.00 mmHg RVSP (TR) 17.4 mmHg
--- NOTE | 2020-08-29 11:43 | PGE_ITS ---
Date of Service Date of service: 08/29/20 Time of Service: 11:43 Assessment and Plan Assessment and plan (1) Chest pain: Status: Acute Assessment and plan: Cardiac risk factors of HLD, tobacco abuse disorder, obesity, FH (F). Troponin has been negative. No EKG findings suggestive of ischemia. Atorvastatin was increased to 80mg daily. LDL of 130. Substituted metoprolol 12.5mg BID for his home propranolol. Monitor HR. ASA 81 mg daily. Stress testing could not be performed today d/t personnel issue. Echocardiogram ordered. 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 If continues to have nitroglycerin responsive CP consider heparinizing pt. and transfer to [facility] [place]. If concerns of wall motion abnormalities will revisit possible transfer for further cardiology eval Qualifiers: Chest pain type: unspecified Qualified Code(s): R07.9 - Chest pain, uns pecified (2) CVA (cerebral vascular accident): Status: Chronic Assessment and plan: History of CVA On statin, ASA. Subjective Subjective Patient reports: no new complaints and afebrile; denies diarrhea, nausea, vomiting and shortness of breath Interval history since last seen: Midsternal chest pressure/pain 2/10 currently. No diaphoresis, SOA. Exam Const General: cooperative and no acute distress Nutritional Appearance: obese Orientation: alert and oriented x3 Chest Chest: normal palpation of entire chest wall and no tenderness Resp Effort & Inspection: normal respiratory effort Auscultation: clear to auscultation bilaterally Cardio Rate: regular rate Rhythm: regular rhythm Heart Sounds: S1 normal and S2 normal GI Palpation: soft and nontender Extrem General: no pedal edema and no calf tenderness Objective Last Vital Signs Temp 36.4 C L 08/29/20 11:24 Pulse 56 L 08/29/20 11:24 Resp 18 08/29/20 11:24 BP 150/76 H 08/29/20 11:24 Pulse Ox 95 08/29/20 11:24 Laboratory Results - last 24 hr 08/28/20 08/28/20 08/28/20 14:22 14:22 14:32 WBC 10.93 H RBC 4.63 Hgb 14.0 Hct 43.0 MCV 92.9 MCH 30.2 MCHC 32.6 RDW 14.6 H Plt Count 291 MPV 10.0 Immature Gran % 0.4 Neutrophils % 62.1 Lymphocytes % 25.2 Monocytes % 6.8 Eosinophils % 4.8 Basophils % 0.7 Nucleated RBC % 0 Absolute Neutrophils 6.79 H Absolute Lymphocytes 2.75 Absolute Monocytes 0.74 Absolute Eosinophils 0.52 Absolute Basophils 0.08 D-Dimer 517 H Sodium 142 Potassium 4.1 Chloride 106 Carbon Dioxide 26.5 Anion Gap 9.5 BUN 24 H Creatinine 1.2 Estimated GFR/1.73 m2 >= 60.00 Glucose 94 Hemoglobin A1c Calcium 8.4 L Magnesium 2.0 Total Bilirubin 0.3 AST 17 ALT 36 Alkaline Phosphatase 96 Troponin I < 0.05 Total Protein 7.1 Albumin 3.6 Triglycerides Total Cholesterol LDL Cholesterol, Calc HDL Cholesterol COVID-19 Source SARS-CoV-2 (PCR) 08/28/20 08/28/20 08/28/20 17:39 18:33 23:07 WBC RBC Hgb Hct MCV MCH MCHC RDW Plt Count MPV Immature Gran % Neutrophils % Lymphocytes % Monocytes % Eosinophils % Basophils % Nucleated RBC % Absolute Neutrophils Absolute Lymphocytes Absolute Monocytes Absolute Eosinophils Absolute Basophils D-Dimer Sodium Potassium Chloride Carbon Dioxide Anion Gap BUN Creatinine Estimated GFR/1.73 m2 Glucose Hemoglobin A1c Calcium Magnesium Total Bilirubin AST ALT Alkaline Phosphatase Troponin I < 0.05 < 0.05 Total Protein Albumin Triglycerides Total Cholesterol LDL Cholesterol, Calc HDL Cholesterol COVID-19 Source Nasal/nares SARS-CoV-2 (PCR) Negative 08/29/20 08/29/20 06:27 06:27 WBC RBC Hgb Hct MCV MCH MCHC RDW Plt Count MPV Immature Gran % Neutrophils % Lymphocytes % Monocytes % Eosinophils % Basophils % Nucleated RBC % Absolute Neutrophils Absolute Lymphocytes Absolute Monocytes Absolute Eosinophils Absolute Basophils D-Dimer Sodium Potassium Chloride Carbon Dioxide Anion Gap BUN Creatinine Estimated GFR/1.73 m2 Glucose Hemoglobin A1c 5.8 H Calcium Magnesium Total Bilirubin AST ALT Alkaline Phosphatase Troponin I Total Protein Albumin Triglycerides 177 H Total Cholesterol 176 LDL Cholesterol, Calc 114 H HDL Cholesterol 27 L COVID-19 Source SARS-CoV-2 (PCR)
[2020-08-29] MEDS: Diclofenac 1% Gel 100 GM TUBE TP ×3 (12:11→20:18)
--- NOTE | 2020-08-29 13:30 | RT.EKG_ITS ---
APPROVED REPORT Exam: Resting ECG Reason for Exam: telemetry changes, CP Patient Location: I HR:67 bpm ECG Measurements Heart Rate 67 AXIS WI 171 P 43 QRSd 106 QRS 2 QT 409 T 0 QTc 432 Conclusion Sinus rhythm...normal P axis, V-rate 60- 99
--- NOTE | 2020-08-29 14:24 | CHAPLAIN ---
When I visited Gerardo this morning, he was waiting to be discharged and looking forward to leaving. We had a short conversation. He's still here this afternoon and I don't know the status of his discharge. I explained my role and offered support.
[2020-08-29 14:34] LABS: Troponin I < 0.05 ng/mL (<0.06)
--- NOTE | 2020-08-29 15:46 | INITIAL_ITS ---
- If Service Date Differs Date of service: 08/29/20 Time of Service: 15:46 Care Management Initial Assess REASON FOR HOSPITALIZATION:: Chest Pain PAST MEDICAL HISTORY/PAST SURGICAL HISTORY:: Medical History. CVA (cerebral vascular accident). Hypercholesterolemia. Renal insufficiency, mild. Surgical History. S/P appendectomy. S/P herniorrhaphy (~12/26/18). S/P shoulder surgery PREVIOUS FUNCTIONAL STATUS/SOCIAL/FAMILY SUPPORTS:: Gerardo lives in [facility] with his , Ruthy, who he calls 'the boss'. He states that he is disabled, and that his is his sole stainer. 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 He also explains that his house is one level, and his bathroom is handicap accessible. Between him and his , they have 12 children and 20 grandchildren. CURRENT FUNCTIONAL STATUS:: Gerardo was sitting up in his chair when CM met with him. He reported that he was feeling ok, and the MD was just in meeting with him. He stated that per MD, he would remain at [facility] over the weekend for a stress test on Tuesday. He will have an Echo today, if available. He is agreeable to remaining at [facility] awaiting these tests. He reported that he has already discussed this with his , as well. CM provided a cross word puzzle book, at his request. CM will continue to follow. ADVANCE DIRECTIVES:: Greg reported that his contracts attorney has a living will on file. We do not have an AD on file. Has patient been provided with info about the portal/API?: Yes Did the patient sign up for the portal?: No CODE STATUS:: Full Code INSURANCE COVERAGE / FINANCIAL ISSUES:: [facility] CURRENT HOME/COMMUNITY SERVICES/EQUIPMENT:: Greg currently has a FWW, cane and crutches at home. He has MOW at home as well. PRIMARY CARE PHYSICIAN:: Olegario Jay POTENTIAL DISCHARGE NEEDS:: Evaluations for further needs, follow up appointments. PATIENT/FAMILY EDUCATION NEEDS:: Review discharge instructions, discuss self care needs including Ask Me Three. ANTICIPATED BARRIERS TO DISCHARGE:: None identified. TRANSPORTATION:: Via private vehicle by his . PLAN:: Gerardo will remain at [facility] over the weekend, being monitored prior to having his stress test on Tuesday. He will return home once medically cleared. His will drive him home via private vehicle. He will follow up with his PCP and discharge plan of care. CM will continue to follow.
[2020-08-29] MEDS: Metoprolol 12.5 MG TAB PO (20:17)
[2020-08-29] MEDS: Atorvastatin 40 MG TAB 80 MG PO (22:46)
[2020-08-29] MEDS: Enoxaparin 40 MG/0.4 ML SYR SC (22:47)
--- NOTE | 2020-08-29 23:29 | NUR.NOTE ---
Pt awake dosing. denies any needs. Nursing Note:
[2020-08-30] VITALS (21 sets, daily range): BP systolic 125–158; BP diastolic 72–84; PULSE 54–85; RESP 16–18; TEMP 36.5–37.2; O2SAT 94–96
--- NOTE | 2020-08-30 02:45 | RT.EKG_ITS ---
APPROVED REPORT Exam: Resting ECG Reason for Exam: chest discomfort Patient Location: I HR:62 bpm ECG Measurements Heart Rate 62 AXIS AL 161 P 10 QRSd 106 QRS 58 QT 438 T 63 QTc 444 Conclusion Sinus rhythm...normal P axis, V-rate 60- 99
[2020-08-30] MEDS: Docusate Sodium 100 MG CAP PO ×2 (07:43→20:31)
[2020-08-30] MEDS: Metoprolol 12.5 MG TAB PO ×2 (07:44→20:31)
[2020-08-30] MEDS: Diclofenac 1% Gel 100 GM TUBE TP ×4 (07:44→20:31)
--- NOTE | 2020-08-30 08:00 | DI.US_ITS ---
Exam(s) US ABDOMEN EXAM: US ABDOMEN CLINICAL HISTORY: chest discomfort TECHNIQUE: Ultrasound of complete upper abdomen performed using standard protocol. COMPARISON: Prior CT scan December 2018 was reviewed FINDINGS: There is no ascites evident. LIVER: There are no hepatic lesions evident nor obvious dilatation of intrahepatic ducts. The liver is hyperechoic indicating steatosis. GALLBLADDER/BILIARY: There are no gallstones. No gallbladder wall edema nor pericholecystic fluid. The common hepatic duct isnot dilated, measuring 3mm at the level of roberta hepatis. PANCREAS: There is no evidence of pancreatic mass nor dilatation of the pancreatic duct. SPLEEN: The spleen is not enlarged and there are no intrasplenic lesions evident. KIDNEYS:Kidneys exhibit normal size with no evidence of solid mass, calculus, nor hydronephrosis. No cortical cysts evident. ABDOMINAL AORTA: There is no evidence of abdominal aortic aneurysm. IVC: Normal diameter where visualized. IMPRESSION: 1. No evidence of cholelithiasis nor dilatation of the biliary tree. 2. Hepatic steatosis. Correlation appropriate hepatic blood work is recommended. 3. No other focal ultrasound findings in the upper abdomen and no ascites. DATA REPOSITORY:
--- NOTE | 2020-08-30 08:04 | DI.VRAD_ITS ---
PROCEDURE INFORMATION: Exam: US Abdomen Complete Exam date and time: 08/30/2020 7:05 AM Age: 65 years old Clinical indication: Other: Chest pain TECHNIQUE: Imaging protocol: Real-time ultrasound of the abdomen with image documentation. COMPARISON: US AAA SCREENING 10/17/2019 8:39 AM FINDINGS: Liver: Diffuse increased echogenicity indicating fatty liver. No obvious liver masses. Gallbladder: Normal. No gallstones. There is no gallbladder wall thickening. Common bile duct: Normal. No stones. No dilation. Pancreas: The pancreas appears mildly echogenic but this is probably related to technique. No pancreatic mass or pancreatic ductal dilatation is seen.. Right kidney: Normal. No mass. No hydronephrosis. Left kidney: There is an 8 mm simple cyst on the left kidney. Otherwise the left kidney is normal with no calcification or hydronephrosis. Spleen: Normal. No splenomegaly. Aorta: Normal. No aneurysm. Inferior vena cava: Normal. IMPRESSION: 1. Normal gallbladder and bile ducts. 2. Fatty liver. 3. No acute abnormalities are seen in the abdomen. Dictated and Authenticated by: Gal Brown MD. Ordering:DAVID Isabel MD
--- NOTE | 2020-08-30 08:15 | RT.EKG_ITS ---
APPROVED REPORT Exam: Resting ECG Reason for Exam: chest pain Patient Location: I HR:59 bpm ECG Measurements Heart Rate 59 AXIS OH 171 P 46 QRSd 108 QRS 52 QT 415 T 63 QTc 413 Conclusion Sinus bradycardia...rate< 60
[2020-08-30 09:04] LABS: Abs Immature Grans 0.02 10^3/uL (0.0-0.06); Absolute Basophil Count 0.06 10^3/uL (0.0-0.2); Absolute Eosinophil Count 0.36 10^3/uL (0.0-0.7); Absolute Neutrophil Count 5.68 10^3/uL (1.2-6.7); Basophils % 0.7; Eosinophils % 4.5; HCT 43.2 % (40.0-50.0); Immature Grans % 0.2; Lymphocytes % 21.2; MCH 29.9 pg (27.0-33.0); MCHC 32.4 % (32.0-36.0); MCV 92.3 fL (80-95); MPV 9.9 fL (8.0-11.0); Monocytes % 2.5; Neutrophils % 70.9; Nucleated RBC 0 %; Platelet Count 264 10^3/uL (130-400); RBC 4.68 10^6/uL (4.36-5.78); RDW 14.5 % (11.8-14.1); RDW-SD 49.3 fL; WBC 8.02 10^3/uL (4.4-10.8)
[2020-08-30 09:26] LABS: Anion Gap 7.4 mmol/L (3-11); BUN 15 mg/dL (7-18); CO2 28.6 mmol/L (21.0-32.0); CREATININE 1.2 mg/dL (0.70-1.30); Calcium 9.1 mg/dL (8.5-10.1); Chloride 106 mmol/L (98-107); Glucose 144 mg/dL (74-106); Potassium 4.1 mmol/L (3.5-5.1); Sodium 142 mmol/L (136-145)
[2020-08-30] MEDS: Pantoprazole 40 MG TABCR PO (09:26)
[2020-08-30 09:34] LABS: Lipase 93 U/L (73-393)
[2020-08-30 09:35] LABS: Troponin I < 0.05 ng/mL (<0.06)
--- NOTE | 2020-08-30 10:12 | PGE_ITS ---
Date of Service Date of service: 08/30/20 Time of Service: 10:12 Assessment and Plan Assessment and plan (1) Chest pain: Status: Acute Assessment and plan: Agree that the patient should have an inpatient stress test due to h/o CVA, ongoing tobacco abuse, obesity, prediabetes, family hx. EKG unchanged. Check pro-BNP. Add PPI. Continue incresed dose of atorvastatin, metoprolol 12.5mg BID , ASA 81 mg daily. Echo w/o wall motion abnormalities. MPI planned for Tuesday. Qualifiers: Chest pain type: unspecified Qualified Code(s): R07.9 - Chest pain, unspecified (2) CVA (cerebral vascular accident): Status: Chronic Assessment and plan: History of CVA Continue statin, ASA. We spoke about optimizing diet (as has prediabetes) and tobacco cessation. (3) Cough: Status: Acute Assessment and plan: x a couple of days. Nonproductive. COVID-19 negative. CXR negative. Echo w/o evidence of systolic or diastolic dysfunction. Check pro-BNP. Suspect this is a cough due to not smoking. Will not start abx at this time. Check procalcitonin. (4) Prediabetes: Status: Acute Assessment and plan: Change diet to carb consistent heart healthy and c onsult nutrition (5) Hyperlipidemia: Status: Acute Assessment and plan: Continue increased dose of atorvastatin (6) Tobacco abuse: Status: Acute Assessment and plan: Provided counseling. Continue nicotrol while in-house. (7) DVT prophylaxis: Status: Acute Assessment and plan: Sc lovenox (8) Discharge planning issues: Status: Acute Assessment and plan: Full code COntinues to require hospitalization. MPI planned for Tuesday Subjective Subjective Interval history since last seen: Mr Negrete had an episode of chest pain last night, circa 2:30 in am, which resolved without intervention. It was left-sided and felt like someone was sitting on him. He also felt very tired at that time and felt his head falling backwards. Denied dizziness, shortness of breath, nausea. EKG was unchanged and troponin this am was negative. Reports a dry cough for a couple of days. Not yet vaccinated against COVID. Does not normally have a cough. We discussed that he has prediabetes. He was not aware of that diagnosis previously. We discussed that his stress test is planned to have on Tuesday. Exam Narrative Exam Narrative: General: Pleasant middle-aged male, A&Ox3, looks comfortable HEENT: EOMI, MMM Heart: RRR, no m/r/g Lungs: scant rales at B bases Abdomen: soft, nontender, nondistended Extremities: trace edema BLE's Objective Last Vital Signs Temp 37.2 C 08/30/20 07:41 Pulse 62 08/30/20 07:41 Resp 18 08/30/20 07:41 BP 134/84 08/30/20 07:41 Pulse Ox 94 08/30/20 07:41 Laboratory Results - last 24 hr 08/29/20 08/30/20 08/30/20 14:09 08:51 08:51 WBC 8.02 RBC 4.68 Hgb 14.0 Hct 43.2 MCV 92.3 MCH 29.9 MCHC 32.4 RDW 14.5 H Plt Count 264 MPV 9.9 Immature Gran % 0.2 Neutrophils % 70.9 Lymphocytes % 21.2 Monocytes % 2.5 Eosinophils % 4.5 Basophils % 0.7 Nucleated RBC % 0 Absolute Neutrophils 5.68 Absolute Lymphocytes 1.70 Absolute Monocytes 0.20 Absolute Eosinophils 0.36 Absolute Basophils 0.06 Sodium 142 Potassium 4.1 Chloride 106 Carbon Dioxide 28.6 Anion Gap 7.4 BUN 15 D Creatinine 1.2 Estimated GFR/1.73 m2 >= 60.00 Glucose 144 H Calcium 9.1 Troponin I < 0.05 Lipase 08/30/20 08:51 WBC RBC Hgb Hct MCV MCH MCHC RDW Plt Count MPV Immature Gran % Neutrophils % Lymphocytes % Monocytes % Eosinophils % Basophils % Nucleated RBC % Absolute Neutrophils Absolute Lymphocytes Absolute Monocytes Absolute Eosinophils Absolute Basophils Sodium Potassium Chloride Carbon Dioxide Anion Gap BUN Creatinine Estimated GFR/1.73 m2 Glucose Calcium Troponin I < 0.05 Lipase 93 echo ;Normal left ventricular wall thickness and chamber size. Estimated ejecti on fraction is 60%. There are no segmental wall motion abnormalities Normal right ventricular size and systolic function Both atria are normal in size There are no structural valvular abnormalities Normal estimated right ventricular systolic pressure Mildly dilated ascending aorta measuring 3.51 cm US abdomen: 1. Normal gallbladder and bile ducts. 2. Fatty liver. 3. No acute abnormalities are seen in the abdomen.
[2020-08-30 11:34] LABS: Procalcitonin < 0.1 ng/mL
--- NOTE | 2020-08-30 12:11 | CMPROGNOTE_ITS ---
- If Service Date Differs Date of service: 08/30/20 Time of Service: 12:11 Care Management Progress Note S/O: Gerardo is sleeping when CM comes to meet with him. He was up early this morning for an ultrasound of his abdomen, so CM decides not to wake him up. Per nursing staff, Gerardo had an episode of chest pain last evening which resolved on its own. He is also reported to have a dry cough for the past couple of days, which is something new for him. No acute abnormalities are seen on the ultrasound, but the radiology report mentions that Gerardo has a fatty liver. A: Gerardo is a 65 year old man admitted to [facility] on 08/28/2020 for chest pain. P: No change in plan. Gerardo will remain at [facility] over the weekend, being monitored prior to having his stress test on Tuesday. He will return home once medically cleared. His will drive him home via private vehicle. He will fol low up with his PCP and discharge plan of care. CM will continue to follow.
[2020-08-30 12:59] LABS: NT-proBNP 66 pg/mL (<300)
--- NOTE | 2020-08-30 14:34 | PHA.REVIEW ---
Pharmacy Admission Review - Admission Clinical Review (Last Updated 08/29/20 @ 11:47 by Everett Gonsalez MD) Discharge planning issues (Acute) DVT prophylaxis (Acute) Hyperlipidemia (Acute) Tobacco abuse (Acute) Prediabetes (Acute) Cough (Acute) Discharge planning issues (Acute) DVT prophylaxis (Acute) Chest pain (Acute) Tobacco dependence (Acute) ibuprofen [From Motrin] Adverse Reaction (Intermediate, Verified 08/28/20 14:34) face shrinks in lactose Adverse Reaction (Mild, Verified 08/28/20 14:34) Diarrhea nicotine [From Nicoderm CQ] Adverse Reaction (Mild, Verified 08/28/20 14:34) Topical Irritation varenicline tartrate [From Chantix] Adverse Reaction (Mild, Verified 08/28/20 14:34) feels wierd Height 6 ft 2 in Weight 111.4 kg - Renal Dosing Renal Dosing: BUN 15 mg/dL (7-18) D 08/30/20 08:51 Creatinine 1.2 mg/dL (0.70-1.30) 08/30/20 08:51 Medications needing adjustments: Reviewed (crcl ~70ml/ml) - Anticoagulation Anticoagulation: Hgb 14.0 g/dL (13.5-17.5) 08/30/20 08:51 Hct 43.2 % (40.0-50.0) 08/30/20 08:51 Plt Count 264 10^3/uL (130-400) 08/30/20 08:51 Creatinine 1.2 mg/dL (0.70-1.30) 08/30/20 08:51 DVT Prohphylaxis: Reviewed Medications: Enoxaparin Therapeutic Anticoagulation: N/A - Relevant Labs Sodium 142 mmol/L (136-145) 08/30/20 08:51 Potassium 4.1 mmol/L (3.5-5.1) 08/30/20 08:51 Chloride 106 mmol/L (98-107) 08/30/20 08:51 Magnesium 2.0 mg/dL (1.8-2.4) 08/28/20 14:22 - DM Control DM Control: Glucose 144 mg/dL (74-106) H 08/30/20 08:51 Hemoglobin A1c 5.8 % (<5.7) H 08/29/20 06:27 Insulin Dosing: N/A - Heart Failure/GA Heart Failure/GA: Troponin I < 0.05 ng/mL (<0.06) 08/30/20 08:51 NT-Pro-B Natriuret Pep 66 pg/mL (<300) 08/30/20 08:51 - BP Control BP Control: Blood Pressure 125/80 Blood Pressure 134/84 Blood Pressure 158/82 - Comments Comments/Follow Ups: needs to have inpt stress test. to be done here Tuesday
[2020-08-30] MEDS: Atorvastatin 40 MG TAB 80 MG PO (21:30)
[2020-08-30] MEDS: Enoxaparin 40 MG/0.4 ML SYR SC (21:30)
[2020-08-31] VITALS (22 sets, daily range): BP systolic 109–122; BP diastolic 61–79; PULSE 54–85; RESP 12–25; TEMP 36.1–36.7; O2SAT 94–96
[2020-08-31 07:10] LABS: HCT 44.6 % (40.0-50.0); HGB 14.5 g/dL (13.5-17.5); MCH 29.8 pg (27.0-33.0); MCHC 32.5 % (32.0-36.0); MCV 91.6 fL (80-95); MPV 9.9 fL (8.0-11.0); Platelet Count 260 10^3/uL (130-400); RBC 4.87 10^6/uL (4.36-5.78); RDW 14.2 % (11.8-14.1); RDW-SD 47.9 fL; WBC 7.94 10^3/uL (4.4-10.8)
[2020-08-31 07:26] LABS: Anion Gap 11.3 mmol/L (3-11); BUN 16 mg/dL (7-18); CO2 25.7 mmol/L (21.0-32.0); CREATININE 1.1 mg/dL (0.70-1.30); Calcium 8.8 mg/dL (8.5-10.1); Chloride 104 mmol/L (98-107); Glucose 102 mg/dL (74-106); Magnesium 1.8 mg/dL (1.8-2.4); Potassium 4.2 mmol/L (3.5-5.1); Sodium 141 mmol/L (136-145)
[2020-08-31] MEDS: Pantoprazole 40 MG TABCR PO (07:51)
[2020-08-31] MEDS: Metoprolol 12.5 MG TAB PO (07:51)
[2020-08-31] MEDS: Docusate Sodium 100 MG CAP PO ×2 (07:51→20:09)
--- NOTE | 2020-08-31 08:26 | CMPROGNOTE_ITS ---
- If Service Date Differs Date of service: 08/31/20 Time of Service: 08:26 Care Management Progress Note S/O: A: Gerardo is a 65 year old man admitted to [facility] on 08/28/2020 for chest pain. P: No change in plan. Gerardo will remain at [facility] over the weekend, being monitored prior to having his stress test on Tuesday. He will return home once medically cleared. His will drive him home via private vehicle. He will follow up with his PCP and discharge plan of care. CM will continue to follow.
--- NOTE | 2020-08-31 09:20 | W.PM.PROGNOT ---
Date of Service Date of service: 08/31/20 Time of Service: 08:15 Assessment and Plan Assessment and plan (1) Chest pain: Status: Acute Assessment and plan: For an inpatient MPI stress test tomorrow. Risk factors: h/o CVA, ongoing tobacco abuse, obesity, prediabetes, family hx. proBNP ok. Echo w/o wall motion abnormalities and preserved EF. Continue incresed dose of atorvastatin, ASA 81 mg daily. Hold beta blockers in anticipation of MPI tomorrow. Continue PPI. Qualifiers: Chest pain type: unspecified Qualified Code(s): R07.9 - Chest pain, unspecified (2) CVA (cerebral vascular accident): Status: Chronic Assessment and plan: History of CVA Continue statin, ASA. We spoke about optimizing diet (as has prediabetes) and tobacco cessation. (3) Cough: Status: Acute Assessment and plan: x a couple of days. Nonproductive. COVID-19 negative. CXR negative. Echo w/o evidence of systolic or diastolic dysfunction. pro BNP nml. Suspect this is a cough due to not smoking. Procalcitonin neg. Will not start abx at this time. (4) Prediabetes: Status: Acute Assessment and plan: Continue carb consistent heart healthy diet. Await nutrition consult. (5) Hyperlipidemia: Status: Acute Assessment and plan: Continue increased dose of atorvastatin (6) Tobacco abuse: Status: Acute Assessment and plan: Provided counseling. Continue nicotrol while in-house. (7) DVT prophylaxis: Status: Acute Assessment and plan: Sc lovenox (8) Discharge planning issues: Status: Acute Assessment and plan: Full code. MPI tomorrow after which either d/c home or a potential transfer would be considered, depending on the result of the test. Subjective Subjective Interval history since last seen: Mr Negrete states that he has felt pretty good over the last 24 hours. He denies any more chest pain. Denies dizziness, shortness of breath, nausea. Continues to have a slight dry cough. No fevers. No arrhythmic events on telemetry. Agrees to stay to get an MPI tomorrow. Exam Narrative Exam Narrative: General: Pleasant middle-aged male, A&Ox3, looks comfortable HEENT: EOMI, MMM Heart: RRR, no m/r/g Lungs: minimal rhonchi at B bases which clear with coughing Abdomen: soft, nontender, nondistended Extremities: trace edema BLE's Objective Last Vital Signs Temp 36.2 C L 08/31/20 07:49 Pulse 59 L 08/31/20 07:49 Resp 18 08/31/20 07:49 BP 122/79 08/31/20 07:49 Pulse Ox 96 08/31/20 07:49 Laboratory Results - last 24 hr 08/30/20 08/30/20 08/30/20 08:51 08:51 08:51 WBC RBC Hgb Hct MCV MCH MCHC RDW Plt Count MPV Sodium 142 Potassium 4.1 Chloride 106 Carbon Dioxide 28.6 Anion Gap 7.4 BUN 15 D Creatinine 1.2 Estimated GFR/1.73 m2 >= 60.00 Glucose 144 H Calcium 9.1 Magnesium Troponin I < 0.05 NT-Pro-B Natriuret Pep 66 Lipase 93 Procalcitonin < 0.1 08/31/20 08/31/20 06:42 06:42 WBC 7.94 RBC 4.87 Hgb 14.5 Hct 44.6 MCV 91.6 MCH 29.8 MCHC 32.5 RDW 14.2 H Plt Count 260 MPV 9.9 Sodium 141 Potassium 4.2 Chloride 104 Carbon Dioxide 25.7 Anion Gap 11.3 H BUN 16 Creatinine 1.1 Estimated GFR/1.73 m2 >= 60.00 Glucose 102 Calcium 8.8 Magnesium 1.8 Troponin I NT-Pro-B Natriuret Pep Lipase Procalcitonin
--- NOTE | 2020-08-31 15:36 | PDOC.CMPRO ---
- If Service Date Differs Date of service: 08/31/20 Time of Service: 15:36 Care Management Progress Note S/O: Gerardo is sitting up in bed watching television when CM comes by to see him. He is pleasant and easily engages in conversation. He shares that his is disappointed that she cannot come visit him at the hospital, as she is not fully vaccinated yet. He states he is feeling much better and is hopeful he will be able to return home to his family tomorrow. If he is discharged home, his will provide transportation via private vehicle. A: Gerardo is a 65 year old man admitted to [facility] on 08/28/2020 for chest pain. P: Gerardo is scheduled for a stress test on Tuesday. Results of the test will dictate whether he is transferred to a tertiary center or discharged home. 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 CM will continue to follow.
[2020-08-31] MEDS: Diclofenac 1% Gel 100 GM TUBE TP ×2 (17:39→20:10)
[2020-08-31] MEDS: Normal Saline Flush 10 ML SYR IVP (20:10)
[2020-08-31] MEDS: Enoxaparin 40 MG/0.4 ML SYR SC (21:04)
[2020-08-31] MEDS: Atorvastatin 40 MG TAB 80 MG PO (21:04)
[2020-09-01] VITALS (10 sets, daily range): BP systolic 104–134; BP diastolic 69–77; PULSE 61–90; RESP 16–25; TEMP 36; O2SAT 96–97
--- NOTE | 2020-09-01 08:00 | DI.NM_ITS ---
APPROVED REPORT Exam: Exercise Treadmill Patient Location: In-Patient Room/Bed: 221 Stress Nurse: Cristin Mackey RN Ordering Provider:JONATAN FRANCOIS, Contact Number: BMI: 31.45 Baseline Rhythm: Sinus Rhythm Comment: inverted T wave lead III Indications: CHEST PAIN Medical History Medical History: CVA, Tobacco dependence, HLD, Prediabetes Cardiac Medications: Atorvastatin, Aspirin, Metoprolol tartrate, Enoxaparin, Nitro SL, Pantoprazole, Allergies: Ibuprofen, Lactose, Nicotine, Varenicline tartrate Cardiac Risk Factors: HTN, Hyperlipidemia, FHX of CAD, Smoking (current), DM (prediabetes), PVD, Obes ity Previous Cardiac Procedures: None Pretest Chest Pain Characteristics: None Exercise History: Sedentary Physical Disabilities: None Lung Sounds: Clear to auscultation Heart Sounds: Regular Stress Test Details Test: Exercise stress testing was performed using a Pedro protocol. Nuclear Acquisition: Rest Tc-99m/Stress Tc-99m 1 day Rest Isotope: Tc-99m Sestamibi. Dose: 11.2 Date: 09/01/2020 Injection Time: 1115 Stress Isotope: Tc-99m Sestamibi. Dose: 37 Date: 09/01/2020 Injection Time: 1330 HR Resting HR Supine: 68 bpm Max Heart Rate (APMHR): 154.673680 bpm Resting HR Standin bpm Target HR (85% APMHR): 130.206351 bpm Max HR Achieved: 146 bpm % of APMHR: 94.81 Recovery HR: 90 bpm HR response to stress: Normal HR response to stress BP Resting BP Supine: 124/80 mmHg Resting BP Standin/82 mmHg Max BP: 138/70 mmHg Recovery BP: 128/76 mmHg BP response to stress: Normal blood pressure response to stress. ECG Resting ECG: Sinus Rhythm, T wave inversion in lead III Ectopy: none Stress ECG: Sinus Tachycardia ST Change: No significant ST segment changes noted Arrhythmia: None Recovery ECG: Sinus Rhythm Recovery ST Change: No significant ST segment changes noted Recovery Arrhythmia: None Clinical Reason for Termination: Fatigue Stress Symptoms: General Fatigue Exercise duration: 4 min44 sec Highest Stage Reached: Stage 2: 2.5 mph at 12% grade. Exercise capacity: 6.71 METs Rate Pressure Product: Stress ECG Conclusion 1. The patient exercised for 5 minutes (7 METS). Exercise was stopped due to fatigue. 2. Patient's heart rate and blood pressure increased appropriately. 3. There is no evidence of ischemia on the ECG portion of the exam. Stress Test Summary STAGE Time (mins) Speed (mph) Grade (%) HR BP SYMPTOMS METS Supine 68 124/80 Standing 90 126/82 1 3 1.7 10 132 4.6 1 min recovery 126 138/70 3 min recovery 89 132/74 6 min recovery 90 128/76 MPI Conclusion Ejection fraction was 54% with stress. There were no wall motion abnormalities. There was no evidence of ischemia on the imaging portion of the exam This represents a normal SPECT stress test. Radiologist Interpretation Radiologist agrees with Aerosol Supervisor's Interpretation. Radiologist Interpretation by: Cristopher Taylor MD Interpretation Date/Time: 09/02/2020 12:07:59
--- NOTE | 2020-09-01 08:23 | W.PM.PROGNOT ---
Subjective Subjective Interval history since last seen: SR in the 70s overnight, good BPs. HR up to 121 overnight, short lived (while got up to urinate); sinus arrhythmia. No chest pains. ?MPI today Objective Last Vital Signs Temp 36.1 C L 08/31/20 20:33 Pulse 72 08/31/20 23:10 Resp 19 09/01/20 06:00 BP 116/67 08/31/20 23:10 Pulse Ox 94 08/31/20 20:33
[2020-09-01] MEDS: Docusate Sodium 100 MG CAP PO ×2 (08:47→14:59)
[2020-09-01] MEDS: Pantoprazole 40 MG TABCR PO (08:47)
[2020-09-01] MEDS: Diclofenac 1% Gel 100 GM TUBE TP (10:06)
--- NOTE | 2020-09-01 10:33 | PDOC.CMPRO ---
- If Service Date Differs Date of service: 09/01/20 Time of Service: 10:33 Care Management Progress Note S/O: A: Gerardo is a 65 year old man admitted to [facility] on 08/28/2020 for chest pain. P: Gerardo is scheduled for a stress test on Tuesday. Results of the test will dictate whether he is transferred to a tertiary center or discharged home. 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 CM will continue to follow.
--- NOTE | 2020-09-01 15:47 | DSE_ITS ---
Date of service: 09/01/20 Time of Service: 15:47 DS: Diagnosis Discharge Diagnosis (1) Chest pain: Status: Resolved Asessment and Plan: noncardiac, MPI negative (2) GERD (gastroesophageal reflux disease): Status: Chronic Asessment and Plan: new diagnosis (3) CVA (cerebral vascular accident): Status: Chronic Asessment and Plan: h/o CVA (4) Cough: Status: Acute Asessment and Plan: Likely smoker's cough; no evidence of acute infectious process (5) Prediabetes: Status: Acute (6) Hyperlipidemia: Status: Chronic (7) Tobacco abuse: Status: Chronic (8) COVID-19 ruled out by laboratory testing: Status: Ruled-out Discharge Plan Disposition Patient Disposition: HOME Condition: Stable Discharge Details Reason For Visit: Chest Pain Admit Date/Time: 08/28/20 18:34 Admit Provider: Boby Britton Attending Provider: Boby Britton Primary Care Provider: Olegario Jay Hospital Course Hospital Course: Mr Negrete is a 65 year old male with PMHx of CVA, hypertension, hyperlipidemia, tobacco abuse, and family h/o heart disease, who was a patient on [facility] hospitalist service from 08/28/20 until 09/01/20 for chest pain. He had ruled out for ACS by troponins and EKGs, but was felt to have a sufficiently convincing story to, given his risk factors, undergo an MPI stress test as an inpatient, which was negative on the day of discharge. He also had an echocardiogram on this admission with LVEF of 60% and no wall motion abnormalities. The patient did have a nonproductive cough on this admission, which was felt to be smoker's cough. He tested negative for COVID-19 and had negative chest imaging. His propranolol was changed to metoprolol on this admission. We do think that it was ultimately GERD that was causing his symptoms and he might have esophagitis, based on the fact that he had been taking diclofenac PO. This was switched to topical application and PPI was initiated. He was asked to stop smoking. He does have prediabetes and is being given information about dietary and lifestyle changes on discharge. He should continue to work on this with her PCP. He is getting vaccinated against COVID-19 prior to discharge (J&J vaccine). He is felt safe for discharge home today. He should follow up with his PCP in 1- 2 weeks. Care for patient as well as completion of his discharge summary took 45 minutes on the day of discharge. Home Meds and New Rx's Prescriptions: New diclofenac sodium 1 % Gel 4 g topical QID Qty: 100 RF: 0 pantoprazole 40 mg Tablet,Delayed Release (Dr/Ec) 40 mg PO DAILY@0730 Qty: 30 RF: 0 metoprolol tartrate 25 mg Tablet 12.5 mg PO BID Qty: 60 RF: 0 Continued baclofen 20 MG tablet 20 mg PO Q8H PRNRF: 0 atorvastatin [Lipitor] 40 MG tablet 1 tab PO HS RF: 0 acetaminophen [Tylenol] 325 mg Tablet 650 mg PO Q6H PRN PRN (Reason: Pain) Qty: 30 RF: 0 docusate sodium [Colace] 100 mg Capsule 100 mg PO TID Qty: 30 RF: 0 aspirin 81 mg Tablet,Delayed Release (Dr/Ec) 81 mg PO DAILY PRN PRNRF: 0 propranolol 20 mg tablet 20 mg PO DAILY RF: 0 Discontinued diclofenac sodium 75 mg tablet,delayed release (DR/EC) 75 mg PO BID PRN PRNRF: 0 Discharge Instructions Instructions: Chest Pain (DC), How to Stop Smoking (DC), Heart Healthy Diet (DC), Cigarette Smoking and Your Health (GEN), Meal Planning with Diabetes Exchanges (DC), GERD (Gastroesophageal Reflux Disease) (DC), Prediabetes (DC) Additional Instructions: We think that your chest pain was likely precipitated by GERD (heartburn) and irritation of the esophagus, likely due to oral diclofenac therapy. This was switched to topical medication which has fewer systemic side effects and you were initiated on a new medicine called protonix/pantoprazole on discharge. You must stop smoking. Return to the hospital with any fever, bleeding, chest pain, worsening shortness of breath. Follow up with your PCP in 1-2 weeks. Referrals: Olegario Jay [Primary Care Provider] - 09/05/20 10:15 am () Activity:: Activity as Tolerated Equipment/Supplies:: No Equipment Needed Diet:: carb consistent heart healthy Discharge Orders Discharge Orders: Discharge Order (Routine); Ordered 09/01/20 Ordered By: Natahsa Still DS: Summary Time Spent with Patient providing and/or coordinating discharge services: Greater than 30 minutes Status at Discharge Functional status at discharge: independent ambulation Overall status at discharge: patient is back to baseline Mental Status: mental status grossly normal Speech and Movement: speech and movement normal Mood: congruent mood Affect: normal affect Exam Narrative Exam Narrative: General: Pleasant middle-aged male, A&Ox3, looks comfortable HEENT: EOMI, MMM Heart: RRR, no m/r/g Lungs: minimal rhonchi at B bases which clear with coughing Abdomen: soft, nontender, nondistended Extremities: trace edema BLE's Psych Mental Status: mental status grossly normal Speech and Movement: speech and movement normal Mood: congruent mood Affect: normal affect DS: Data Vitals/I&O Vitals and I&O: Vital Signs Temperature 36.0 C L 09/01/20 09:27 Temperature Source Temporal Artery Scan 09/01/20 09:27 Pulse 81 09/01/20 14:12 Pulse Rhythm Regular 09/01/20 08:30 Pulse 82 09/01/20 14:12 Respiratory Rate 16 09/01/20 14:12 Respiratory Effort Non-Labored 09/01/20 08:30 Respiratory Depth Normal 09/01/20 08:30 Respiratory Pattern Normal 09/01/20 08:30 Blood Pressure 126/77 09/01/20 14:12 Blood Pressure Mean 92 09/01/20 14:12 Blood Pressure Position Sitting 08/28/20 14:30 Pulse Oximetry 97 09/01/20 09:23 Oxygen Delivery Method Room Air 08/31/20 20:33 Oxygen Flow Rate 0 08/31/20 20:33 Pain Level 0 08/31/20 20:33 Comment 08/29/20 03:58 Intake & Output 08/31/20 09/01/20 09/01/20 23:59 11:59 23:59 Intake Total 235 / 715 60 / 60 Output Total 1724 675 / 675 Balance -1490 / -1310 -615 / -615 Intake: IV Oral 235 / 715 50 / 50 Output: Urine 17245 / 675 Other: Urine Color Yellow Yellow Urine Appearance Clear Clear Urine Odor None Strong Voiding Methods Urinal Data Completed and Pending Completed studies during hospitalization [Text1]: CXR: Normal chest. Echo (TTE): Normal left ventricular wall thickness and chamber size. Estimated ejection fraction is 60%. There are no segmental wall motion abnormalities Normal right ventricular size and systolic function Both atria are normal in size There are no structural valvular abnormalities Normal estimated right ventricular systolic pressure Mildly dilated ascending aorta measuring 3.51 cm US abdomen: 1. No evidence of cholelithiasis nor dilatation of the biliary tree. 2. Hepatic steatosis. Correlation appropriate hepatic blood work is recommended. 3. No other focal ultrasound findings in the upper abdomen and no ascites. MPI: official read pending. preliminary read discussed with chassis mechanic: normal [facility] Medical History (Updated 09/01/20 @ 16:03 by Natasha Still MD) CVA (cerebral vascular accident) Hypercholesterolemia Renal insufficiency, mild Surgical History S/P appendectomy S/P herniorrhaphy (~12/26/18) S/P shoulder surgery Family History (Updated 08/28/20 @ 22:30 by Boby Britton) Father Heart disease Social History (Updated 08/28/20 @ 22:32 by Boby Britton) Smoking/Tobacco Use Status: Current every day Tobacco Type: cigarettes Smoking risk assessment performed?: Yes Alcohol Intake: former Drug use: Never Household members: spouse Do you feel safe in your relationship?: Yes Additional Social history: Lives in [facility] in [facility] with , daughter, and 2 grandkids 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
--- NOTE | 2020-09-01 17:31 | PDOC.CMDIS ---
- If Service Date Differs Date of service: 09/01/20 Time of Service: 17:31 LACE Index Scoring Tool - Questions: Length of Stay (in days): 4 - 6 Acuity (Admit via E.D.?): Yes Comorbidities: Cerebrovascular Disease E.D. Visits: 1 - Answers: Total Score: 9 Risk of Readmission: Low Risk Care Management Discharge Reason for Hospitalization: Chest Pain Discharge Plan: Gerardo will return home with no additional services at this time. He will be driven home by his . He will follow up with his PCP and discharge plan of care. He is happy to be going home. Patient/Family Education Needs: Review discharge instructions regarding activity levels and medications, discussion of self care needs.
== END 2020-09-01 17:40 | disposition home or self-care (01) | DRG 313 ==
LOC: ER 19:54 → MS 20:28 → ICU 08-31 08:30
PROVIDERS: Family Medicine; Internal Medicine; Registered Nurse Emergency; Admitting Provider Family Medicine; Emergency Provider Physician Assistant; PCP Nurse Practitioner; Visit Provider Family Medicine
DX: R07.89 Other chest pain (principal); T39.395A Adverse effect of other nonsteroidal anti-inflammatory drugs [NSAID], initial encounter; J41.0 Simple chronic bronchitis; F17.210 Nicotine dependence, cigarettes, uncomplicated; K21.9 Gastro-esophageal reflux disease without esophagitis; Z86.73 Personal history of transient ischemic attack (TIA), and cerebral infarction without residual deficits; R73.03 Prediabetes; E78.5 Hyperlipidemia, unspecified; Z20.822 Contact with and (suspected) exposure to COVID-19; Z82.49 Family history of ischemic heart disease and other diseases of the circulatory system
CPT/HCPCS: 36415; 78452; 80048; 80053; 80061; 83690; 84145; 85027; 87635; 93005; 93016; 93018; 93306; 99285; J1650; 71046; 76700; 83036; 83735; 83880; 84484; 85025; 85379; 93010; 93017; 99232; 99233; 99239; J3490

== ENCOUNTER 2021-01-17 13:33 | Emergency (ER) | payer OTHER, SELFPAY ==
[2021-01-17] VITALS (43 sets, daily range): BP systolic 103–162; BP diastolic 33–114; PULSE 47–62; RESP 11–49; TEMP 36.4; O2SAT 91–97
--- NOTE | 2021-01-17 13:30 | RT.EKG_ITS ---
APPROVED REPORT Exam: Resting ECG Reason for Exam: CP Patient Location: E HR:56 bpm ECG Measurements Heart Rate 56 AXIS FL 167 P 48 QRSd 104 QRS 62 QT 417 T 57 QTc 402 Conclusion Sinus bradycardia...rate< 60. Sinus. No STEMI. I have reviewed and interpreted ECG and agree with software generated interpretation.
--- NOTE | 2021-01-17 13:46 | ED.GENADUL_ITS ---
Discharge Plan Disposition Patient Disposition: HOME Condition: Stable Discharge Details Clinical Impression: Chest pain Primary Care Provider: Olegario Jay ED Provider: Olegario Winston Home Meds and New Rx's Prescriptions: Continued baclofen 20 MG tablet 20 mg PO Q8H PRNRF: 0 atorvastatin [Lipitor] 40 MG tablet 1 tab PO HS RF: 0 acetaminophen [Tylenol] 325 mg Tablet 650 mg PO Q6H PRN PRN (Reason: Pain) Qty: 30 RF: 0 aspirin 81 mg Tablet,Delayed Release (Dr/Ec) 81 mg PO DAILY PRN PRNRF: 0 propranolol 20 mg tablet 20 mg PO DAILY RF: 0 diclofenac sodium 1 % Gel 4 g topical QID Qty: 100 RF: 0 pantoprazole 40 mg Tablet,Delayed Release (Dr/Ec) 40 mg PO DAILY@0730 Qty: 30 RF: 0 metoprolol tartrate 25 mg Tablet 12.5 mg PO BID Qty: 60 RF: 0 Discharge Instructions Instructions: Chest Pain (ED) Additional Instructions: Laboratory values do not reveal any obvious emergent process. As we discussed your CT imaging today recommend a CTA of your coronary arteries for further evaluation. It also revealed a 2 cm left adrenal mass, outpatient MRI recommended for further evaluation. Admission to our facility was offered today but declined. Please watch for new or worsening symptoms and return to the ER for any concerns. Otherwise I would like you to contact your primary care provider on Tuesday to discuss your ER visit, symptoms, and need for outpatient reevaluation and further testing for work-up of your symptoms and CTA findings. Stand Alone Forms: Work Release Discharge Data Discharge Date/Time-TO BE ENTERED AT DEPARTURE: 01/17/21 18:32 Medical Decision Making <AYLIN Esteves - Last Filed: 01/18/21 10:30> Patient is a pleasant 65-year-old male presenting today with chief complaint of chest pain and right-sided mid to lower abdominal pain. Patient reports that pain initially began 3 days ago primarily in the right side of the lower abdomen. Denied any change in food or with movement at that time. However, while he was working today he states he began having some chest pain. It does not radiate into his back. He denies any nausea or vomiting. States that initially, the pain with this severe it would make him dizzy and diaphoretic. He denies any history of cardiac disease. Denies any fevers or chills. No change in appetite. States that now he is having pain central aspect of his chest, mid right abdomen and radiates around towards the right flank. History pertinent for GERD, septicemia, active smoker, incarcerated facial hernia, CVA, renal insufficiency. Patient is on aspirin daily. On exam, patient appears anxious. His lungs are clear, normal cardiac exam. Patient is incredibly jumpy when I attempt to palpate his abdomen. However, with some verbal calming, he is able to allow for exam with no peritoneal findings. No palpable mass. No pulsatile mass. This is appropriate in all extremities. Patient is already had aspirin today. With the radiation of pain particularly into the flank, I did consider dissection or aneurysm. Plan for CTA or thorax and abdomen. We will hold off on any further antiplatelet agents. We will treat pain with morphine, hydration. Vital signs are stable. Considered ACS with exertional chest pain but I am unclear how this insulin: To his already ongoing abdominal discomfort. Patient status post appendectomy. Consider acute cholecystitis although pain seems to low.. Also consider recurrent hernia, gastroenteritis, GERD exacerbation versus other. Patient appears nontoxic and stable. We will move forward with CA and baseline labs. Labs reviewed. No leukocytosis. Stable H&H. No abnormality on CMP. Lipase within normal limits. Troponin within normal limit. CT pending. Plan for repeat troponin. At the end of my shift, care transition to LUCIANA Winston with imaging and repeat troponin pending <AYLIN Sanders - Last Filed: 01/17/21 18:14> I assumed care of this 65-year-old male from my colleague AYLIN Haq, please see her initial HPI and examination. At time of signout awaiting repeat troponin, EKG and imaging studies. I personally evaluated the patient, he is resting comfortably, reports that he has no discomfort, chest pain, shortness of breath, abdominal pain, etc. whatsoever. He states that the hospital stretcher is uncomfortable which is bothering his back but at this time that is his only c omplaint. We discussed his initial laboratory values. CT imaging pending. He is agreeable to awaiting a repeat troponin. Giving his symptoms, age, comorbidities, etc. We did discuss observation admission but patient declines, if repeat troponin is unremarkable she would like to be discharged home and plans to follow-up with his primary care provider on Tuesday. Repeat EKG performed at 1704. Sinus bradycardia, ventricular rate of 48, no STEMI, please see official report by Dr. Wilson. When reviewing previous heart rate on multiple other visit patient has had heart rate that revealed mindi ycardia. CT imaging revealed dependent infiltrates at the pulmonary bases. Emphysema present. Heavy atherosclerosis of the left anterior descending artery and left main coronary artery. Consider coronary CTA. No evidence of obstruction. Uncomplicated periumbilical hernia. 2 cm left adrenal mass, differential includes adenoma, primary or secondary malignancy. Correlate with MRI. Discussed CT findings with patient and significant other. They understand that he will require CTA for further evaluation after the CTA today. They also understand he will need outpatient MRI for further evaluation of the left adrenal mass. Once again given his age,, but he, presentation, observation admission was discussed, recommended, but once again declined. Repeat troponin remains less than 0.05. Upon reevaluation patient denies any chest pain, shortness of breath abdominal pain, flank pain. Reports back pain secondary to sitting in the uncomfortable hospital stretcher. Answered questions of the patient and family to the best of my ability. They have no additional questions or concerns and are comfortable discharge. Strict discharge and return precautions provided. This documentation was generated using [employer] dictation system, please disregard any oddities of phrase or misspellings. Medical Records Medical records reviewed: Yes I reviewed the patient's medical records. Imaging Data Radiologic Study: Attestation: I personally reviewed and interpreted this imaging study as follows: Imaging: CT Scan Radiologist's impression: PROCEDURE INFORMATION: Exam: CTA Chest With Contrast Exam date and time: 01/17/2021 1:56 PM Age: 65 years old Clinical indication: Angina pectoris; Abdominal pain; Other: Back TECHNIQUE: Imaging protocol: Computed tomographic angiography of the chest with contrast. 3D rendering (Not supervised by radiologist): MIP and/or 3D reconstructed images were created by the technologist. Radiation optimization: All CT scans at this facility use at least one of these dose optimization techniques: automated exposure control; mA and/or kV adjustment per patient size (includes targeted exams where dose is matched to clinical indication); or iterative reconstruction. Contrast material: [id number]; Contrast volume: 100 ml; Contrast route: INTRAVENOUS (IV); COMPARISON: CT CHEST LUNG CANCER SCREEN 10/17/2019 8:33 AM FINDINGS: Pulmonary arteries: Normal. No pulmonary emboli. Aorta: Nonsignificant atherosclerosis in the aortic arch. Great vessels off aortic arch: Nonsignificant atherosclerosis in the origin of the left subclavian artery. Nonsignificant atherosclerosis in the origin of the right subclavian artery. Lungs: Dependent of infiltrates at the pulmonary bases. Mild paraseptal pulmonary emphysema in the pulmonary apices. Pleural spaces: Unremarkable. No pneumothorax. No pleural effusion. Heart: Heavy atherosclerosis of the left anterior descending artery and left main coronary artery. Consider coronary CTA. Lymph nodes: Unremarkable. No enlarged lymph nodes. Bones/joints: Unremarkable. No acute fracture. TAMRA CASTELLON Preliminary Radiology Report Page 2 of 3 Soft tissues: Unremarkable. IMPRESSION: 1. Dependent of infiltrates at the pulmonary bases. Mild paraseptal pulmonary emphysema in the pulmonary apices. 2. Nonsignificant atherosclerosis in the aortic arch. 3. Nonsignificant atherosclerosis in the origin of the left subclavian artery. 4. Nonsignificant atherosclerosis in the origin of the right subclavian artery. 5. Heavy atherosclerosis of the left anterior descending artery and left main coronary artery. Consider coronary CTA. PROCEDURE INFORMATION: Exam: CT Angiography Abdomen With Contrast Exam date and time: 01/17/2021 1:56 PM Age: 65 years old Clinical indication: Angina pectoris; Abdominal pain; Other: Back TECHNIQUE: Imaging protocol: Computed tomographic angiography images of the abdomen with intravenous contrast material. 3D rendering (Not supervised by radiologist): MIP and/or 3D reconstructed images were created by the technologist. Radiation optimization: All CT scans at this facility use at least one of these dose optimization techniques: automated exposure control; mA and/or kV adjustment per patient size (includes targeted exams where dose is matched to clinical indication); or iterative reconstruction. Contrast material: [id number]; Contrast volume: 100 ml; Contrast route: INTRAVENOUS (IV); COMPARISON: CT CHEST LUNG CANCER SCREEN 10/17/2019 8:33 AM FINDINGS: Aorta: Nonsignificant atherosclerosis in the aorta. Celiac trunk and mesenteric arteries: No occlusion or significant stenosis. Renal arteries: No occlusion or significant stenosis. Right iliac arteries: Nonsignificant atherosclerosis in the right common iliac artery. Left iliac arteries: Nonsignificant atherosclerosis in the left common iliac artery. Liver: Normal. No mass. Gallbladder and bile ducts: Normal. No calcified stones. No ductal dilation. Pancreas: Normal. No ductal dilation. Spleen: Normal. No splenomegaly. Adrenals: 2 cm left adrenal mass measuring greater Hounsfield units than expected for simple lipid rich adenoma. Differential diagnosis includes lipid poor adenoma, primary or secondary malignancy. Correlate with MRI. 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 If there is a discrepancy between the preliminary and final interpretation, please notify [email or web address] via [email or web address]. If you do not have access to our QA portal, call our QA team at [phone] CONFIDENTIALITY STATEMENT This report is intended only for the use of the referring physician, and only in accordance with law, If you received this in error, call [phone] Page 3 of 3 Kidneys and ureters: Normal. No hydronephrosis. Stomach and bowel: Diastases recti with a large ventral hernia containing multiple loops of small bowel. No evidence of obstruction. Right paraumbilical hernia containing fat and bowel, uncomplicated. Lymph nodes: Unremarkable. No enlarged lymph nodes. Intraperitoneal space: Unremarkable. No free air. No significant fluid co llection. Bones/joints: Degenerative changes in the spine. Soft tissues: Unremarkable. IMPRESSION: 1. Diastases recti with a large ventral hernia containing multiple loops of small bowel. No evidence of obstruction. 2. Right paraumbilical hernia containing fat and bowel, uncomplicated. 3. Nonsignificant atherosclerosis. 4. 2 cm left adrenal mass measuring greater Hounsfield units than expected for simple lipid rich adenoma. Differential diagnosis includes lipid poor adenoma, primary or secondary malignancy. Correlate with MRI. Thank you for allowing us to participate in the care of your patient Lab Data Lab results reviewed: Yes I reviewed the patient's lab results. Labs: Laboratory Tests Range/Units 01/17/21 01/17/21 01/17/21 13:45 13:45 13:45 WBC (4.4-10.8) 10^3/uL 10.41 RBC (4.36-5.78) 10^6/uL 4.68 Hgb (13.5-17.5) g/dL 13.9 Hct (40.0-50.0) % 42.7 MCV (80-95) fL 91.2 MCH (27.0-33.0) pg 29.7 MCHC (32.0-36.0) % 32.6 RDW (11.8-14.1) % 13.5 Plt Count (130-400) 10^3/uL 290 MPV (8.0-11.0) fL 9.7 Immature Gran % 0.4 Neutrophils % 64.4 Lymphocytes % 25.6 Monocytes % 4.4 Eosinophils % 4.3 Basophils % 0.9 Nucleated RBC % % 0 Absolute Neutrophils (1.2-6.7) 10^3/uL 6.71 H Absolute Lymphocytes (1.2-3.4) 10^3/uL 2.66 Absolute Monocytes (0.1-0.8) 10^3/uL 0.46 Absolute Eosinophils (0.0-0.7) 10^3/uL 0.45 Absolute Basophils (0.0-0.2) 10^3/uL 0.09 Sodium (136-145) mmol/L 140 Potassium (3.5-5.1) mmol/L 4.3 Chloride (98-107) mmol/L 105 Carbon Dioxide (21.0-32.0) mmol/L 25.7 Anion Gap (3-11) mmol/L 9.3 BUN (7-18) mg/dL 15 Creatinine (0.70-1.30) mg/dL 1.3 Estimated GFR/1.73 m2 (mL/min/1.73m2) 55.23 Glucose (74-106) mg/dL 106 Calcium (8.5-10.1) mg/dL 8.5 Magnesium (1.8-2.4) mg/dL 2.0 Total Bilirubin (0.2-1.0) mg/dL 0.7 AST (15-37) U/L 21 ALT (16-63) U/L 43 Alkaline Phosphatase (46-116) U/L 106 Troponin I (<0.06) ng/mL < 0.05 Total Protein (6.4-8.2) g/dL 7.2 Albumin (3.4-5.0) g/dL 3.6 Lipase (73-393) U/L 159 Range/Units 01/17/21 17:00 WBC (4.4-10.8) 10^3/uL RBC (4.36-5.78) 10^6/uL Hgb (13.5-17.5) g/dL Hct (40.0-50.0) % MCV (80-95) fL MCH (27.0-33.0) pg MCHC (32.0-36.0) % RDW (11.8-14.1) % Plt Count (130-400) 10^3/uL MPV (8.0-11.0) fL Immature Gran % Neutrophils % Lymphocytes % Monocytes % Eosinophils % Basophils % Nucleated RBC % % Absolute Neutrophils (1.2-6.7) 10^3/uL Absolute Lymphocytes (1.2-3.4) 10^3/uL Absolute Monocytes (0.1-0.8) 10^3/uL Absolute Eosinophils (0.0-0.7) 10^3/uL Absolute Basophils (0.0-0.2) 10^3/uL Sodium (136-145) mmol/L Potassium (3.5-5.1) mmol/L Chloride (98-107) mmol/L Carbon Dioxide (21.0-32.0) mmol/L Anion Gap (3-11) mmol/L BUN (7-18) mg/dL Creatinine (0.70-1.30) mg/dL Estimated GFR/1.73 m2 (mL/min/1.73m2) Glucose (74-106) mg/dL Calcium (8.5-10.1) mg/dL Magnesium (1.8-2.4) mg/dL Total Bilirubin (0.2-1.0) mg/dL AST (15-37) U/L ALT (16-63) U/L Alkaline Phosphatase (46-116) U/L Troponin I (<0.06) ng/mL < 0.05 Total Protein (6.4-8.2) g/dL Albumin (3.4-5.0) g/dL Lipase (73-393) U/L HPI <AYLIN Esteves - Last Filed: 01/18/21 10:30> General Mode of arrival: ambulatory . Date/Time Provider Initiated Documentation: 01/17/21 13:34 . Limitations to Documentation: no limitations . Information obtained by: patient and RN notes reviewed . History of Present Illness 65 year old M presents to the emergency department with the chief complaint of CP, right sided abdominal pain, described as severe, with intensity rated at 8. Quality is described as aching, and is localized to the chest and abdomen. Patient reports radiation to back. Patient started experiencing this day(s) and it has been constant. No relieving factors improve symptom(s), Other factors that worsen symptoms (work) . Patient notes chest pain, diaphoresis and shortness of breath (episode of SOB with CP this evening); denies cough, fever/chills, loss of appetite, nausea/vomiting, syncope and weakness. Patient did receive the following treatments prior to arrival, none Related Data Home Medications Medication Instructions Recorded Confirmed baclofen 20 mg PO Q8H PRN 06/26/15 01/17/21 atorvastatin [Lipitor] 1 tab PO HS 09/11/16 01/17/21 acetaminophen [Tylenol] 650 mg PO Q6H PRN PRN #30 tab 12/29/18 01/17/21 aspirin 81 mg PO DAILY PRN PRN 08/28/20 01/17/21 propranolol 20 mg PO DAILY 08/28/20 01/17/21 diclofenac sodium 4 g TOPICAL QID #100 g 09/01/20 01/17/21 metoprolol tartrate 12.5 mg PO BID #60 tab 09/01/20 01/17/21 pantoprazole 40 mg PO DAILY@0730 #30 tab 09/01/20 01/17/21 Previous Rx's Medication Instructions Recorded acetaminophen [Tylenol] 650 mg PO Q6H PRN PRN #30 tab 12/29/18 diclofenac sodium 4 g TOPICAL QID #100 g 09/01/20 metoprolol tartrate 12.5 mg PO BID #60 tab 09/01/20 pantoprazole 40 mg PO DAILY@0730 #30 tab 09/01/20 Allergies Allergy/AdvReac Type Severity Reaction Status Date / Time ibuprofen [From Motrin] AdvReac Intermediate face Verified 01/17/21 13:42 shrinks in lactose AdvReac Mild Diarrhea Verified 01/17/21 13:42 nicotine [From Nicoderm CQ] AdvReac Mild Topical Verified 01/17/21 13:42 Irritation varenicline tartrate AdvReac Mild feels Verified 01/17/21 13:42 [From Chantix] wierd General Stated Complaint: Chest Pain ELVIS: 2 Review of Systems <AYLIN Esteves - Last Filed: 01/18/21 10:30> Constitutional Constitutional: Reports as per HPI, Denies chills, Denies fever(s), Denies headache(s), Denies lethargy and Denies poor appetite ENT Ears, Nose, Mouth, and Throat: Reports dizziness (with episode of CP) and Denies headache(s) Cardiovascular Cardiovascular: Reports as per HPI and Reports dyspnea (with episode of CP) Respiratory Respiratory: Reports as per HPI, Denies chest congestion, Denies cough, Denies pain on inspiration, Denies pain with cough, Reports dyspnea (with episode of CP) and Denies wheezing Gastrointestinal Gastrointestinal: Reports as per HPI, Reports abdominal pain, Denies diarrhea, Denies nausea and Denies vomiting Genitourinary Genitourinary: Denies system reviewed and no additional complaints, except as documented (denies change in urinary habits) Musculoskeletal Musculoskeletal: Reports as per HPI and Reports back pain (right sided back pain) Integumentary/Breasts Skin/Breast: Reports as per HPI and Denies rash Neurologic Neurologic: Reports as per HPI, Reports dizziness (with episode of CP) and Denies headache(s) Allergic/Immunologic Allergic/Immunologic: Denies wheezing PFSH <AYLIN Esteves - Last Filed: 01/18/21 10:30> Medical History CVA (cerebral vascular accident) Hypercholesterolemia Renal insufficiency, mild Surgical History S/P appendectomy S/P herniorrhaphy (~12/26/18) S/P shoulder surgery Family History (Updated 08/28/20 @ 22:30 by Boby Britton) Father Heart disease Social History Smoking/Tobacco Use Status: Current every day Tobacco Type: cigarettes Smoking risk assessment performed?: Yes Alcohol Intake: former Drug use: Occasionally Substance use type: marijuana Household members: spouse Do you feel safe in your relationship?: Yes Additional Social history: Lives in [facility] [place] with , daughter, and 2 grandkids 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 Exam <AYLIN Esteves - Last Filed: 01/18/21 10:30> Const General: cooperative, healthy appearing, comfortable, no acute distress and well developed Nutritional Appearance: well nourished and overweight Orientation: alert, awake and oriented x3 HENMT Ears: hearing grossly normal bilaterally Chest Chest: normal inspection of the chest, normal palpation of entire chest wall and no crepitus Resp Effort & Inspection: normal respiratory effort, able to speak in complete sent ences and no respiratory distress Auscultation: clear to auscultation bilaterally, no rales, no rhonchi and no wheezes Cardio Rate: regular rate Rhythm: regular rhythm Heart Sounds: S1 normal and S2 normal GI Inspection: normal to inspection, no edema and non-distended Palpation: soft, no hepatosplenomegaly, not firm, no guarding, not rigid and tender in the RLQ; not at McBurney's point, Umaña's sign negative and with no rebound tenderness Auscultation: normal bowel sounds Back/Spine/Pelvis Back: no CVA tenderness (pain inferior to this) Thoracic/Lumbar Spine: thoracic and lumbar spine normal to inspection Skin General skin exam: no rashes or lesions noted Trauma: no lacerations or abrasions Neuro General: patient alert, patient awake and patient oriented x3 Cognition: normal cognition Speech: speech normal Gait: normal gait Extrem General: normal to inspection, capillary refill normal, no pedal edema, no calf tenderness and normal gait Psych Appearance: grossly normal and well kempt Mental Status: mental status grossly normal Speech and Movement: speech and movement normal Course <AYLIN Esteves - Last Filed: 01/18/21 10:30> Vital Signs Vital signs: Vital Signs Temperature 36.4 C L 01/17/21 13:40 Pulse 58 L 01/17/21 13:40 Respiratory Rate 14 01/17/21 13:40 Blood Pressure 141/114 H 01/17/21 13:40 Pulse Oximetry 97 01/17/21 13:40 Temperature 36.4 C L 01/17/21 13:40 Temperature Source Skin 01/17/21 13:40 Pulse 58 L 01/17/21 13:40 Respiratory Rate 14 01/17/21 13:40 Respiratory Effort Non-Labored 01/17/21 13:44 Blood Pressure 141/114 H 01/17/21 13:40 Blood Pressure Position Sitting 01/17/21 13:40 Pulse Oximetry 97 01/17/21 13:40 Oxygen Delivery Method Room Air 01/17/21 13:40 Oxygen Flow Rate 0 01/17/21 13:40 Pain Level 6 01/17/21 13:40 Sign Out <AYLIN Esteves - Last Filed: 01/18/21 10:30> Sign Out Data: Sign Out Comment: Patient here with chest pain, diaphoresis, shortness of breath and abdominal pain that radiates into the back. At the end of my shift, care transition to Ashwin Winston PA-C with imaging and repeat troponin pending. Last updated by Romy Haq PA at 01/17/21 15:46
[2021-01-17 13:53] LABS: Abs Immature Grans 0.04 10^3/uL (0.0-0.06); Absolute Basophil Count 0.09 10^3/uL (0.0-0.2); Absolute Eosinophil Count 0.45 10^3/uL (0.0-0.7); Absolute Lymphocyte Count 2.66 10^3/uL (1.2-3.4); Absolute Monocyte Count 0.46 10^3/uL (0.1-0.8); Absolute Neutrophil Count 6.71 10^3/uL (1.2-6.7); Basophils % 0.9; Eosinophils % 4.3; HCT 42.7 % (40.0-50.0); HGB 13.9 g/dL (13.5-17.5); Immature Grans % 0.4; Lymphocytes % 25.6; MCH 29.7 pg (27.0-33.0); MCHC 32.6 % (32.0-36.0); MCV 91.2 fL (80-95); MPV 9.7 fL (8.0-11.0); Monocytes % 4.4; Neutrophils % 64.4; Nucleated RBC 0 %; Platelet Count 290 10^3/uL (130-400); RBC 4.68 10^6/uL (4.36-5.78); RDW 13.5 % (11.8-14.1); RDW-SD 45.9 fL; WBC 10.41 10^3/uL (4.4-10.8)
[2021-01-17 14:23] LABS: ALT 43 U/L (16-63); AST 21 U/L (15-37); Albumin 3.6 g/dL (3.4-5.0); Alkaline Phosphatase 106 U/L (46-116); Anion Gap 9.3 mmol/L (3-11); BUN 15 mg/dL (7-18); Bilirubin, Total 0.7 mg/dL (0.2-1.0); CO2 25.7 mmol/L (21.0-32.0); CREATININE 1.3 mg/dL (0.70-1.30); Calcium 8.5 mg/dL (8.5-10.1); Chloride 105 mmol/L (98-107); Estimated GFR 55.23 (mL/min/1.73m2); Glucose 106 mg/dL (74-106); Potassium 4.3 mmol/L (3.5-5.1); Sodium 140 mmol/L (136-145); Total Protein 7.2 g/dL (6.4-8.2)
[2021-01-17 14:24] LABS: Troponin I < 0.05 ng/mL (<0.06)
[2021-01-17 14:32] LABS: Lipase 159 U/L (73-393)
--- NOTE | 2021-01-17 15:22 | DI.CT_ITS ---
Exam(s) CT THORAX ABDOMEN CTA EXAM: CT THORAX ABDOMEN CTA CLINICAL HISTORY: CP radiating into mid/lower abdomen. TECHNIQUE: Imaging Protocol: Axial computed tomography images with coronal and sagittal reformatted images were created and reviewed CONTRAST MATERIAL: Intravenous: Omnipaque 350 Contrast volume:100 ml Oral: None COMPARISON: CT CT ABDOMEN PELVIS W from 12/26/2018 FINDINGS: CHEST: PULMONARY ARTERIES: There are no obvious intraluminal filling defects to suggest acute pulmonary embo li. LUNGS: There is symmetrical increased dependent markings in the posterior aspects of both lungs, not associated with pleural effusions. There are no ominous pulmonary nodules. No significant findings in the trachea and mainstem bronchi.. MEDIASTINUM: There is no hilar nor mediastinal adenopathy. Visualized thyroid unremarkable. CARDIAC: Heart size is normal. There is no pericardial effusion. Coronary artery calcification note d AORTA: Caliber of the thoracic aorta is within normal limits.There is no evidence of aortic dissectio n. ABDOMEN: AORTA: There is no evidence of abdominal aortic aneurysm nor dissection.Diameter of the abdominal aorta is s lightly prominent distally. Although it is only 2.4 cm, there is lack of typical normal tapering, th is superimposed upon moderate atherosclerotic involvement. The inferior mesenteric artery is noted t o be patent. There is no evidence of significant stenosis at the aortic bifurcation and there is no significant stenosis nor aneurysmal dilatation of the common iliac arteries.The celiac and superior m esenteric arteries are patent. No tight stenosis at the origin of the renal arteries. There is early bifurcation of the left renal artery noted. Both kidneys exhibit normal size. There is no ascites. LIVER: Liver is hypodense implying steatosis. Liver size is upper normal. There are no discrete foc al hepatic lesions evident, realizing that this is an arterial phase study. GALLBLADDER/BILIARY: No obvious gallbladder pathology. CBD is not dilated. PANCREAS: No evidence of pancreatic mass nor dilatation of the pancreatic duct. SPLEEN: Spleen is not enlarged. There are no intrasplenic lesions. Splenic and portal veins are morin nt. ADRENALS: Nodular density at the genu of the left adrenal gland noted. This is most probably an [place] zohaib given that it is unchanged from the CT scan of 2 years ago (12/26/2018). Right adrenal gland unr emarkable. KIDNEYS: No cysts evident. No calculi nor hydronephrosis. No solid renal masses. ABDOMINAL AORTA: See above LYMPH NODES: There is no retroperitoneal nor para-aortic adenopathy. No obvious mesenteric masses. ABDOMINAL WALL: Diastasis recti tests with large ventral hernia but no evidence of obstruction. Also right periumbilical hernia containing fat and bowel, without transition point. GI: There is no evidence of bowel obstruction, free air, nor abscess. PELVIS: The pelvis was not scanned IMPRESSION: 1. No evidence of significant aortic aneurysm. There is moderate atherosclerotic involvement of the abdominal aorta. No tight stenosis at the origin of the vessels off the abdominal aorta. Inferior m esenteric artery is also patent. Aortic bifurcation is nonstenotic and there is no significant steno sis evident in the visualized common iliac arteries nor aneurysmal dilatation of the common iliac art eries. 2. Diastasis recti with large ventral hernia containing multiple small bowel loops but no evidence of bowel obstruction at this time. There are no edematous appearing bowel loops in this region (as was evident on the CT scan of December 2018, 2 years ago). 3. There is a round density-possible worn a mint in the deep umbilicus which was not evident on the p rior study. This is located 2.7 cm deep to the skin surface and may be significant given that there is some streaking around this area. There is, however, no drainable abscess at this level. 4. Hepatic steatosis noted. Stable left adrenal nodule, unchanged from December 2018 and therefore most probably a benign adenoma. No significant osseous lesions. RADIATION DOSE DELIVERED: 1,008.15mGy.cm Total DLP DATA REPOSITORY: All CT scans at this facility are submitted to the National Radiology Data Registry (NRDR) Dose Index Registry (DIR) with the [employer] ([employer]). RADIATION OPTIMIZATION: All CT scans at this facility use at least one of these dose optimization te chniques: automated exposure control; mA and/or kV adjustment per patient size (includes targeted exa ms where dose is matched to clinical indication); or iterative reconstruction.
[2021-01-17] MEDS: Omnipaque 350 MG/ML 100 ML BTL IJ (16:05)
[2021-01-17] MEDS: Normal Saline Flush 10 ML SYR IVP (16:05)
--- NOTE | 2021-01-17 16:23 | DI.VRAD_ITS ---
PROCEDURE INFORMATION: Exam: CTA Chest With Contrast Exam date and time: 01/17/2021 1:56 PM Age: 65 years old Clinical indication: Angina pectoris; Abdominal pain; Other: Back TECHNIQUE: Imaging protocol: Computed tomographic angiography of the chest with contrast. 3D rendering (Not supervised by radiologist): MIP and/or 3D reconstructed images were created by the technologist. Radiation optimization: All CT scans at this facility use at least one of these dose optimization techniques: automated exposure control; mA and/or kV adjustment per patient size (includes targeted exams where dose is matched to clinical indication); or iterative reconstruction. Contrast material: [id number]; Contrast volume: 100 ml; Contrast route: INTRAVENOUS (IV); COMPARISON: CT CHEST LUNG CANCER SCREEN 10/17/2019 8:33 AM FINDINGS: Pulmonary arteries: Normal. No pulmonary emboli. Aorta: Nonsignificant atherosclerosis in the aortic arch. Great vessels off aortic arch: Nonsignificant atherosclerosis in the origin of the left subclavian artery. Nonsignificant atherosclerosis in the origin of the right subclavian artery. Lungs: Dependent of infiltrates at the pulmonary bases. Mild paraseptal pulmonary emphysema in the pulmonary apices. Pleural spaces: Unremarkable. No pneumothorax. No pleural effusion. Heart: Heavy atherosclerosis of the left anterior descending artery and left main coronary artery. Consider coronary CTA. Lymph nodes: Unremarkable. No enlarged lymph nodes. Bones/joints: Unremarkable. No acute fracture. Soft tissues: Unremarkable. IMPRESSION: 1. Dependent of infiltrates at the pulmonary bases. Mild paraseptal pulmonary emphysema in the pulmonary apices. 2. Nonsignificant atherosclerosis in the aortic arch. 3. Nonsignificant atherosclerosis in the origin of the left subclavian artery. 4. Nonsignificant atherosclerosis in the origin of the right subclavian artery. 5. Heavy atherosclerosis of the left anterior descending artery and left main coronary artery. Consider coronary CTA. PROCEDURE INFORMATION: Exam: CT Angiography Abdomen With Contrast Exam date and time: 01/17/2021 1:56 PM Age: 65 years old Clinical indication: Angina pectoris; Abdominal pain; Other: Back TECHNIQUE: Imaging protocol: Computed tomographic angiography images of the abdomen with intravenous contrast material. 3D rendering (Not supervised by radiologist): MIP and/or 3D reconstructed images were created by the technologist. Radiation optimization: All CT scans at this facility use at least one of these dose optimization techniques: automated exposure control; mA and/or kV adjustment per patient size (includes targeted exams where dose is matched to clinical indication); or iterative reconstruction. Contrast material: [id number]; Contrast volume: 100 ml; Contrast route: INTRAVENOUS (IV); COMPARISON: CT CHEST LUNG CANCER SCREEN 10/17/2019 8:33 AM FINDINGS: Aorta: Nonsignificant atherosclerosis in the aorta. Celiac trunk and mesenteric arteries: No occlusion or significant stenosis. Renal arteries: No occlusion or significant stenosis. Right iliac arteries: Nonsignificant atherosclerosis in the right common iliac artery. Left iliac arteries: Nonsignificant atherosclerosis in the left common iliac artery. Liver: Normal. No mass. Gallbladder and bile ducts: Normal. No calcified stones. No ductal dilation. Pancreas: Normal. No ductal dilation. Spleen: Normal. No splenomegaly. Adrenals: 2 cm left adrenal mass measuring greater Hounsfield units than expected for simple lipid rich adenoma. Differential diagnosis includes lipid poor adenoma, primary or secondary malignancy. Correlate with MRI. Kidneys and ureters: Normal. No hydronephrosis. Stomach and bowel: Diastases recti with a large ventral hernia containing multiple loops of small bowel. No evidence of obstruction. Right paraumbilical hernia containing fat and bowel, uncomplicated. Lymph nodes: Unremarkable. No enlarged lymph nodes. Intraperitoneal space: Unremarkable. No free air. No significant fluid collection. Bones/joints: Degenerative changes in the spine. Soft tissues: Unremarkable. IMPRESSION: 1. Diastases recti with a large ventral hernia containing multiple loops of small bowel. No evidence of obstruction. 2. Right paraumbilical hernia containing fat and bowel, uncomplicated. 3. Nonsignificant atherosclerosis. 4. 2 cm left adrenal mass measuring greater Hounsfield units than expected for simple lipid rich adenoma. Differential diagnosis includes lipid poor adenoma, primary or secondary malignancy. Correlate with MRI. Dictated and Authenticated by: Bonita Delacruz MD. Ordering:JAYJAY Stanton MD
--- NOTE | 2021-01-17 17:00 | RT.EKG_ITS ---
APPROVED REPORT Exam: Resting ECG Reason for Exam: repeat troponin Patient Location: E HR:48 bpm ECG Measurements Heart Rate 48 AXIS MO 188 P 40 QRSd 99 QRS 48 QT 470 T 55 QTc 421 Conclusion Sinus bradycardia...rate< 60 Sinus. No STEMI. I have reviewed and interpreted ECG and agree with software generated interpretation.
[2021-01-17 17:27] LABS: Troponin I < 0.05 ng/mL (<0.06)
== END 2021-01-17 18:32 | disposition home or self-care (01) ==
PROVIDERS: Physician Assistant; Emergency Provider Physician Assistant; PCP Nurse Practitioner
DX: R10.31 Right lower quadrant pain (principal); R07.9 Chest pain, unspecified; R42 Dizziness and giddiness; R93.422 Abnormal radiologic findings on diagnostic imaging of left kidney; R06.02 Shortness of breath
CPT/HCPCS: 36415; 71275; 74175; 80053; 83690; 93005; 96374; 99285; 83735; 84484; 85025; 93010; J3490

== ENCOUNTER 2025-04-12 12:47 | Outpatient (REF) | payer MEDICARE, OTHER, SELFPAY ==
[2025-04-12 15:57] LABS: Abs Immature Grans 0.02 10^3/uL (0.0-0.06); HCT 41.8 % (40.0-50.0); HGB 13.8 g/dL (13.5-17.5); Immature Grans % 0.2 %; MCH 29.9 pg (27.0-33.0); MCHC 33.0 % (32.0-36.0); MCV 91 fL (80-95); MPV 10.1 fL (8.0-11.0); Platelet Count 251 10^3/uL (130-400); RBC 4.61 10^6/uL (4.36-5.78); RDW 14.0 % (11.8-14.1); RDW-SD 47.0 fL; WBC 8.76 10^3/uL (4.4-10.8)
[2025-04-12 16:16] LABS: TSH 1.75 uIU/mL (0.55-4.78)
[2025-04-12 16:17] LABS: Vitamin D 25 Total 33 ng/mL (30-100)
[2025-04-12 16:19] LABS: ALT 19 U/L (10-49); AST 20 U/L (<34); Albumin 4.2 g/dL (3.2-5.0); Alkaline Phosphatase 99 U/L (46-116); Anion Gap 7.3 mmol/L (3-11); BUN 16 mg/dL (9-23); Bilirubin, Total 0.5 mg/dL (0.2-1.2); CO2 25.7 mmol/L (20.0-31.0); Calcium 9.3 mg/dL (8.3-10.6); Chloride 111 mmol/L (98-107); Cholesterol 126 mg/dL (<200); Glucose 100 mg/dL (74-106); HDL Cholesterol 42 mg/dL (>or=40); Potassium 4.4 mmol/L (3.5-5.1); Sodium 144 mmol/L (136-145); Total Protein 6.7 g/dL (5.7-8.2)
[2025-04-12 16:49] LABS: Hemoglobin A1C 5.4 % (<5.7)
[2025-04-12 22:05] LABS: CRP, High Sensitivity 4.37 mg/L (See Note)
== END 2025-04-12 12:48 | disposition home or self-care (01) ==
LOC: NCHCN 12:47
PROVIDERS: PCP Nurse Practitioner; Visit Provider Family Medicine
DX: Z13.1 Encounter for screening for diabetes mellitus (principal); K21.9 Gastro-esophageal reflux disease without esophagitis; E55.9 Vitamin D deficiency, unspecified; I10 Essential (primary) hypertension; E78.5 Hyperlipidemia, unspecified
CPT/HCPCS: 80053; 80061; 82306; 86141; 83036; 84443; 85025